=== PATIENT | male | born 1930 | race Caucasian/White ===

== ENCOUNTER 2017-03-09 05:53 | Inpatient (IN) | payer OTHER ==
[~2017-03-09] VITALS: Ht 180.3 cm; Wt 56.7 kg
[2017-03-09] VITALS (8 sets, daily range): BP systolic 113–139; BP diastolic 73–82; PULSE 71–107; TEMP 36.4–36.8; O2SAT 94–100; Ht 180.3 cm; Wt 56.7 kg
[~2017-03-09 05:53] MED LIST: ACETAMINOPHEN 325 MG TAB PO PRN; ALUMINUM/MAGNESIUM/SIMETH (MAALOX MAX) 30 ML UDC PO PRN; MAGNESIUM HYDROXIDE SUSP 30 ML UDC PO PRN; NITROGLYCERIN 0.4 MG SL PER TAB CHARGE SL PRN; ONDANSETRON INJ 2 MG/ML 2 ML VIAL IV PRN
--- NOTE | 2017-03-09 05:57 | History and Physical ---
History & Physical Date & Time of Service: Mar 09, 2017 at 05:50 Chief Complaint: Atrial Fibrillation With Rvr, Diarrhea,Dehydration Primary Care Physician: Neel Farmer M.D. History of Present Illness Source: patient, hospital records Mr Molina is an 86 yo male with atrial fibrillation,CAD s/p stent placement in [place] 6 years ago, prostate Ca, and COPD who presents via ambulance from [facility]. He apparently had severe diarrhea the last few days as well as a sore throat, and was dehydrated, then noticed his breathing start to be very rapid. He denies any chest pain occurring at that time. He reportedly told [place] he did not take his medications the last 3 days. He presented to [place] and was found to be in a fib with RVR, and was given a dose of digoxin and his heart slowed. He was given 3L of NSS and his HR went from 140 to 120. He reports drinking about 2 beers daily, sometimes more, and so was given a banana bag, thiamine, and folic acid. Imaging showed increased lucency on T9, and there was concern for a spread of his prostate Ca. He also had a BNP of 8600. He was also found to have oral candidiasis. Past Medical/Surgical History Medical Problems: (1) CAD (coronary artery disease) Status: Chronic (2) CHF (congestive heart failure) Status: Chronic (3) HTN (hypertension) Status: Chronic Surgical Problems: (1) History of appendectomy Status: Resolved (2) History of heart catheterization Status: Resolved Family History FH: cancer Social History Drinks about 2+ beers per night. Smokes 1/2 pack per day since age 30. Lives alone in an apartment. Smoking Status: Current Every Day Smoker (1/2 pack per shell) Drug Use: none Marital Status: other Housing status: lives alone Occupational Status: retired Immunizations History of Influenza Vaccine: Unknown History of Tetanus Vaccine?: Unknown History of Pneumococcal: Unknown History of Hepatitis B Vaccine: Unknown Multi-Drug Resistant Organisms History of MDRO: No Allergies Coded Allergies: No Known Allergies (Unverified , 03/09/17) Home Medications Scheduled Aspirin (Aspirin 81), 81 MG PO DAILY Carvedilol (Coreg), 6.25 MG PO BID Digoxin (Digoxin), 0.125 MG PO DAILY Folic Acid (Folvite), 1 MG PO DAILY Levothyroxine Sodium (Levothyroxine Sodium), 75 MCG PO DAILY Meloxicam (Mobic), 15 MG PO DAILY [place]-3 Fatty Acids (Fish Oil Concentrate), 1,000 MG PO BID Pantoprazole (Protonix), 20 MG PO DAILY Paroxetine (Paxil), 20 MG PO DAILY Tamsulosin Hcl (Flomax), 0.4 MG PO DAILY Thiamine Hcl (Vitamin B-1), 100 MG PO BID Trazodone Hcl (Trazodone), 25 MG PO HS Review of Systems See HPI for pertinent positives & negatives. A total of 10 systems reviewed and were otherwise negative. Physical Exam Vital Signs Date Time Temp Pulse Resp B/P (MAP) Pulse Ox O2 Delivery O2 Flow Rate FiO2 03/09/17 04:45 100 Nasal Cannula 4.0 03/09/17 04:45 36.4 74 16 139/76 (97) 100 Nasal Cannula 4.0 General Appearance: WD/WN, no apparent distress, + thin Head: normocephalic, atraumatic Eyes: normal inspection, PERRL ENT: hearing grossly normal Neck: supple, no JVD Respiratory/Chest: lungs clear, normal breath sounds, no respiratory distress Cardiovascular: regular rate, rhythm, no murmur, normal peripheral pulses Abdomen/GI: normal bowel sounds, non tender, soft Back: no CVA tenderness, no muscle spasm Extremities/Musculoskelatal: no calf tenderness, no pedal edema Neurologic/Psych: alert, normal mood/affect, oriented x 3 Skin: no rash Diagnostics Laboratory Results Last 24 Hours Test 03/09/17 07:20 03/09/17 16:43 White Blood Count 4.76 K/uL Red Blood Count 4.36 M/uL Hemoglobin 13.6 g/dL Hematocrit 40.3 % Mean Corpuscular Volume 92.4 fL Mean Corpuscular Hemoglobin 31.2 pg Mean Corpuscular Hemoglobin Concent 33.7 g/dl Platelet Count 136 K/uL Mean Platelet Volume 9.6 fL Neutrophils (%) (Auto) 68.1 % Lymphocytes (%) (Auto) 10.3 % Monocytes (%) (Auto) 20.8 % Eosinophils (%) (Auto) 0.2 % Basophils (%) (Auto) 0.2 % Neutrophils # (Auto) 3.24 K/uL Lymphocytes # (Auto) 0.49 K/uL Monocytes # (Auto) 0.99 K/uL Eosinophils # (Auto) 0.01 K/uL Basophils # (Auto) 0.01 K/uL RDW Standard Deviation 46.4 fL RDW Coefficient of Variation 13.7 % Immature Granulocyte % (Auto) 0.4 % Immature Granulocyte # (Auto) 0.02 K/uL Prothrombin Time 13.2 SECONDS Prothromb Time International Ratio 1.2 Activated Partial Thromboplast Time 39.7 SECONDS 54.6 SECONDS Partial Thromboplastin Ratio 1.5 2.1 Sodium Level 135 mmol/L Potassium Level 4.3 mmol/L Chloride Level 101 mmol/L Carbon Dioxide Level 25 mmol/L Anion Gap 9.0 mmol/L Blood Urea Nitrogen 18 mg/dl Creatinine 0.88 mg/dl Est Creatinine Clear Calc Drug Dose 48.1 ml/min Estimated GFR () 91.4 Estimated GFR (Non- 78.9 BUN/Creatinine Ratio 20.2 Random Glucose 75 mg/dl Osmolality 284 mOsm/kg Calcium Level 8.3 mg/dl Magnesium Level 1.9 mg/dl Troponin I 0.036 ng/ml Thyroid Stimulating Hormone (TSH) 0.871 uIu/ml Digoxin Level 0.5 ng/ml Ethyl Alcohol mg/dL < 3.0 mg/dl CXR normal EKG Atrial fibrillation, 76bpm Septal infarct , age undetermined Abnormal ECG No previous ECGs available Confirmed by ROSENDO PETERSON ([id number]) on 03/09/2017 9:06:31 AM No prior EKG available Impression Assessment and Plan 86 yo M, with atrial fibrillation with RVR, likely from inability to take medications when had a gastroenteritis. Atrial fibrillation - Will continue home medications (awaiting reconciliation) - Lopressor 5mg IV for HR > 110 - Unclear if he is on anticoaguation - Rule out PE - Repeat echo in AM - May need Cardiology consult - Telemetry monitoring CAD, s/p stent 6 years ago - Will obtain outpt records - Continue current home regime Diarrheal illness - Will check a C Diff level Hx of prostate Ca, with potential mets to spine - Awaiting outside imaging - Check PSA level Tobacco use - Nicotine patch Deconditioning - PT/OT VTE: IV heparin Dispo: Admit to Tele. After completing H&P it was made known to us that the pts PCP is Lizbeth. Dr. Hernandez was contacted for transfer of care to the [facility] Service. Full code. Attending addendum: I have physically seen this patient, have supervised the medical residents activities, and agree with the H&P unless as otherwise noted. Assessment and Plan: Atrial fibrillation with RVR/CAD/history coronary artery stent 6 years ago-- Likely secondary to inability to take routine medications. The patient will be admitted to telemetry for serial cardiac enzymes, cardiac rhythm monitoring and a 2-D echocardiogram with Dopplers. Lopressor 5 mg IV every 4 hours when necessary heart rate greater than 110 Usually on digoxin 0.125 mg by mouth daily, but was given 0.25 mg by mouth as a single dose at [facility]. Reinstitute home regimen of chlorics 6.25 mg by mouth twice a day, aspirin 81 mg by mouth daily, digoxin 0.125 mg by mouth daily. Of note, patient, upon chart review sees Dr. Wood, who is [facility] PCP, the patient will be therefore transferred to Dr. Hernandez's service with rashawn for continuity of care. Level of Care Telemetry Advanced Directives Existing Advance Directive: No Existing Living Will: No Existing Power of Hand Washer: No Resuscitation Status FULL RESUSCITATION VTE Prophylaxis VTE Risk Assessment Done? Y/N: Yes Risk Level: Moderate Given or contraindicated: SCD's Resident Tracking Resident Involvement: Resident Care Provided Care Provided: Adult Hospital Medicine
[2017-03-09] MEDS ORDERED: PATIENT'S ALLERGY INFO NEEDS ENTERED SCH (06:00)
[2017-03-09] MEDS ORDERED: METOPROLOL TARTRATE 1 MG/ML VIAL IV PRN (06:00)
[2017-03-09] MEDS ORDERED: PNEUMOCOCCAL POLYSACCHARIDES 25 MCG/0.5 ML VIAL/SYR IM. ONE (06:45)
[2017-03-09] MEDS ORDERED: PNEUMOCOCCAL ADMINISTRATION CHARGE ONE (06:45)
[2017-03-09] MEDS ORDERED: LEVO75TA5 PO (06:51)
[2017-03-09] MEDS ORDERED: THIA100T11 PO (06:51)
[2017-03-09] MEDS ORDERED: FOLI1TAB8 PO (06:52)
[2017-03-09] MEDS ORDERED: PRT/20 PO (06:52)
[2017-03-09] MEDS ORDERED: PARO1TAB27 PO (06:52)
[2017-03-09] MEDS ORDERED: ASPI-435 PO (06:52)
[2017-03-09] MEDS ORDERED: OMEG435C PO (06:54)
[2017-03-09] MEDS ORDERED: TRAZ50TA35 PO (06:54)
[2017-03-09] MEDS ORDERED: TAMS0.4C38 PO (06:54)
[2017-03-09] MEDS ORDERED: LNX125 PO (06:55)
[2017-03-09] MEDS ORDERED: CARV6.25 PO (06:55)
[2017-03-09] MEDS ORDERED: MELOPOW (06:56)
[2017-03-09] MEDS ORDERED: MELO15TA4 PO (06:56)
[2017-03-09] MEDS ORDERED: CARVEDILOL 6.25 MG TAB PO ONE (07:29)
[2017-03-09] MEDS ORDERED: OXYCODONE/ACETAMINOPHEN 5-325 TAB PO PRN (07:45)
[2017-03-09] MEDS ORDERED: LORAZEPAM 2 MG/ML 1 ML VIAL IV PRN (07:45)
[2017-03-09] MEDS ORDERED: ACETAMINOPHEN 325 MG TAB PO PRN (07:45)
[2017-03-09] MEDS ORDERED: LEVALBUTEROL/IPRATROPIUM NEB INH PRN (07:45)
[2017-03-09] MEDS ORDERED: PROCHLORPERAZINE INJ 5 MG in SYRINGE 4 ML IV PRN (07:45)
[2017-03-09 07:46] LABS: BASO % 0.2 %; BASO ABS # 0.01 K/uL (0-0.2); COMPLETE YES; EOS % 0.2 %; HEMATOCRIT 40.3 % (42-52); IG% 0.4 %; LYMPH % 10.3 %; LYMPH ABS # 0.49 K/uL (1.2-3.4); MEAN CELL VOLUME 92.4 fL (80-100); MEAN CORPUSCULAR HEMOGLOBIN 31.2 pg (25-34); MEAN CORPUSCULAR HGB CONC 33.7 g/dl (32-36); MEAN PLATELET VOLUME 9.6 fL (7.4-10.4); MONO % 20.8 %; NEUT % 68.1 %; PLATELET COUNT 136 K/uL (130-400); RED BLOOD COUNT 4.36 M/uL (4.7-6.1); WHITE BLOOD COUNT 4.76 K/uL (4.8-10.8)
[2017-03-09 07:53] LABS: PARTIAL THROMBOPLASTIN RATIO 1.5
[2017-03-09] MEDS ORDERED: LEVALBUTEROL 1.25MG/0.5ML NEB INH PRN (08:00)
[2017-03-09] MEDS ORDERED: IPRATROPIUM BROMIDE NEB SOLN 0.02% 2.5 ML VIAL INH PRN (08:00)
[2017-03-09 08:03] LABS: BUN/CREATININE RATIO 20.2 (10-20); CALCIUM 8.3 mg/dl (8.5-10.1); CREATININE 0.88 mg/dl (0.60-1.40); MAGNESIUM 1.9 mg/dl (1.8-2.4); POTASSIUM 4.3 mmol/L (3.5-5.1)
--- NOTE | 2017-03-09 08:09 | DIAGNOSTIC IMAGING REPORT ---
CHEST ONE VIEW PORTABLE HISTORY: wheezing COMPARISON: None. FINDINGS: No pneumothorax. No pleural effusions. The lungs are hyperexpanded with apical predominant emphysematous changes. No focal lung consolidations to suggest pneumonia. The heart is normal in size. No evidence for pulmonary edema. IMPRESSION: Emphysema. No acute process within the chest. Electronically signed by: Stu San M.D. 03/09/2017 8:08 AM Dictated Date/Time: 03/09/2017 8:07 AM
[2017-03-09 08:14] LABS: THYROID STIMULATING HORMONE 0.871 uIu/ml (0.300-4.500)
[2017-03-09] MEDS ORDERED: OPTIRAY 320 IV PRN (08:15)
[2017-03-09] MEDS ORDERED: MAGNESIUM SULFATE 1GM / D5W 1 GM in PREMIXED IN D5W 100 ML IV ONE (08:30)
--- NOTE | 2017-03-09 08:44 | HISTORY & PHYSICAL EXAMINATION ---
DATE OF ADMISSION: 03/09/2017 CHIEF COMPLAINT: Shortness of breath. HISTORY OF PRESENT ILLNESS: History obtained from patient and records. Medical history significant for AFib not on anticoagulation, COPD, ongoing tobacco abuse, CAD post-stenting, prostate cancer status post radiation, mood disorder, hypothyroidism, daily alcohol intake (chronic anemia with baseline hemoglobin of 13). Last few days the patient not feeling well. Patient noted increasing shortness of breath symptoms. Usual smoker's cough symptoms. No chest pain, no fever, no chills. Loose stools, poor appetite. No recent antibiotic. Patient seen at [facility] Emergency Room. Patient was noted to be tachypneic, tachycardic (rapid AFib.) Patient received IV hydration, DuoNebs, Levaquin for possible COPD exacerbation. Patient received Lovenox 60 mg SQ for thromboprophylaxis. Transferred to [facility] for Cardiology evaluation. Patient accepted for transfer by [facility] Hospitalist group. Patient transferred to [facility] after PCP info extracted. [facility] MEDICAL HISTORY: As above. Patient's record searcher is Dr. Sanders. Has not seen him in about 5 years. Patient not aware of any need for regular cardiac follow-up. Patient thinks he may have been on anticoagulation in the past. Not sure why it was stopped. Does not recall any episodes of bleeding in the past. A 2D echo from October 2015 showed EF of 55%. No pericardial effusion, mild aortic valve stenosis, mitral valve sclerosis, LVH. Patient sees [facility]. SURGERIES: Appendectomy. HOME MEDICATIONS: Include thiamine, levothyroxine, folic acid, aspirin, Meloxicam, carvedilol, digoxin, Protonix, paroxetine, tamsulosin and trazodone. ALLERGIES: No known drug allergies. FAMILY HISTORY: Hypertension. PERSONAL AND SOCIAL HISTORY: pack daily. Daily alcohol intake. 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 REVIEW OF SYSTEMS: As per HPI. All 10 systems reviewed, all other ROS negative. PHYSICAL EXAMINATION: VITAL SIGNS: Blood pressure was noted to be 139/76, pulse is 74, RR 16, temp 36 , O2 sats 100 on 4 liters. GENERAL: Noted to be comfortable, hyposthenic. no respiratory distress. Hard of hearing. Wearing a blanket over his head SKIN: Pallor. Warm HEENT: Alopecia. Pale palpebral conjuctivae. Dry mucosa. No ptosis. NECK: Supple. No tenderness. CHEST: Decreased breath sounds. Occasional wheeze. HEART: Irregular. Systolic murmur. Palpable LE pulses. ABDOMEN: Soft. NT EXTREMITIES: No edema, no tenderness, no gross deformities. NEUROLOGIC: Coherent. No gross focality except for mild hearing impairment. LABORATORY DATA: Labs from [facility] [place] dated 03/08/2017: Hemoglobin 14, hematocrit 46, white cell count 9, platelets 161. Sodium 130, potassium 4.5, chloride 94, CO2 25, BUN 18, creatinine 1, glucose of 80. Mag was 1.7, anion gap was 15. Chest x-ray from [facility], emphysema, pulmonary hypertension, diffuse T9 vertebral body blastic metastasis, new from October 2015. EKG as per my interpretation, rate 150, AFib. ASSESSMENT: 1. Rapid atrial fibrillation. Patient's heart rate currently controlled after initial intervention at [facility] ER possible precipitants : Diarrheal illness ? Medication compliance (patient cannot even name his home meds) rule out pulmonary embolism with shortness of breath symptoms 2. Hypertension, stable. 3. Coronary artery disease, status post stenting. 4. Headache ro bleed 5. Ongoing tobacco abuse. 6. Malnutrition (low BMI). 7. Prostate cancer status post radiation concern for bone mets on imaging done at [facility] ER. 8. Daily alcohol intake. 9. ? Functional disability 10. chronic anemia (hemoglobin at [facility] ER better than baseline) PLAN: PCU facilitate Coreg, digoxin (if level normal) Stool C. diff. CT chest, PE study. RE sob CT head headache TTE RE sob, rapid AF May need inpatient Cardiology eval for AF Obtain recent outpatient cardiology records. (Patient has not seen his [facility] record searcher in more than 5 years as per patient account.) ffup PSA level May need outpatient Oncology eval pending results. Nutrition consult. PT OT eval DT precautions Nicotine patch DVT prophylaxis, IV heparin if no bleed on CT head for thromboembolic prophylaxis for AF (Assess patient for candidacy for outpatient anticoagulation given patient's frailty.) Full code. Attempt to contact patient's daughter regarding patient's functional status. Miss Erika Khan at [phone]. No billing from [facility] for this initial H&P encounter. Initial H&P and admission orders were performed by [facility] Hospitalist group. MARCI
[2017-03-09] MEDS: NICOTINE 14 MG/24 HR TDSY TD SCH (09:00)
--- NOTE | 2017-03-09 09:18 | DIAGNOSTIC IMAGING REPORT ---
HEAD CT NONCONTRAST CT DOSE: HISTORY: Headache. TECHNIQUE: Multiaxial CT images of the head were performed without the use of intravenous contrast. Automated exposure control was utilized for this study. A dose lowering technique was utilized adhering to the principles of ALARA. Comparison: None. Findings: Partial desiccation of the right frontal sinus, ethmoid air cells. Near-complete opacification of the nasal cavity suggesting underlying polyps. Trace fluid levels within the sphenoid sinus and right maxillary sinus. Moderate mucosal thickening within the maxillary sinuses. The mastoid air cells are clear. Motion artifact. The calvarium and skull base are intact. There is no mass, hematoma, midline shift, acute infarct. White matter hypodensity is nonspecific but suggestive of microvascular ischemic change. The ventricles and sulci demonstrate mild age-related involutional changes. Impression: No acute intracranial abnormality. Atrophy and microvascular ischemic changes. Acute on chronic paranasal sinusitis as described above. Electronically signed by: Stu San M.D. 03/09/2017 9:17 AM Dictated Date/Time: 03/09/2017 9:14 AM
--- NOTE | 2017-03-09 09:28 | DIAGNOSTIC IMAGING REPORT ---
CHEST CTA for PULMONARY ARTERIES CT DOSE: 1308.25 mGy.cm HISTORY: Short of breath. TECHNIQUE: Multiaxial CT images of the chest were performed following the intravenous administration of contrast to evaluate the pulmonary arteries. Maximal intensity projection images were also obtained. A dose lowering technique was utilized adhering to the principles of ALARA. COMPARISON STUDY: Chest 03/09/2017. FINDINGS: Normal caliber thoracic aorta. No evidence for dissection within the ascending aorta or aortic arch. Inadequate contrast opacification within the descending thoracic aorta. Retrograde opacification of the hepatic veins suggesting mild right-sided heart dysfunction. The heart is mildly enlarged. Trace bilateral pleural effusions. No pericardial effusion. The visualized spleen is unremarkable. Thickening of the adrenal glands is likely age-related. No significant mediastinal or hilar lymphadenopathy. Diffuse sclerosis within the T9 vertebral body. A few additional smaller sclerotic lesions seen within the mid to lower thoracic spine and at L1. There is also a sclerotic focus within the right seventh rib. 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 No pneumothorax. The lungs are hyperexpanded with moderate emphysema. Biapical partially calcified densities favor scarring. [Linear densities favor subsegmental atelectasis. Otherwise, no focal lung consolidations to suggest pneumonia. Near complete opacification of the bilateral lower lobe segmental and subsegmental bronchi. Bilateral lower lobe subsegmental pulmonary arteries are nondiagnostic due to motion artifact. Otherwise, the remaining pulmonary arteries show no filling defects to suggest pulmonary embolus. IMPRESSION: 1. No evidence for pulmonary embolus. 2. Near complete opacification of the bilateral lower lobe segmental and subsegmental bronchi with secretions. 3. Moderate emphysema. 4. Multiple sclerotic lesions seen within the thoracic spine and right seventh rib. 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 5. Trace bilateral pleural effusions. Electronically signed by: Stu San M.D. 03/09/2017 9:26 AM Dictated Date/Time: 03/09/2017 9:17 AM
[2017-03-09] MEDS: PANTOprazole SOD 40 MG TAB PO SCH (09:44)
[2017-03-09] MEDS: ASPIRIN 81 MG ECTAB PO SCH (09:44)
[2017-03-09] MEDS: MULTIVITAMIN TAB PO SCH (09:44)
[2017-03-09] MEDS: LEVOTHYROXINE 75 MCG TAB PO SCH (09:44)
[2017-03-09] MEDS: TAMSULOSIN HCL 0.4 MG CAP PO SCH (09:44)
[2017-03-09] MEDS: PAROXETINE 20 MG TAB PO SCH (09:44)
[2017-03-09] MEDS: THIAMINE HCL 100 MG TAB PO SCH (09:44)
[2017-03-09] MEDS: HEPARIN IV LOW DOSE NO BOLUS SCH ×10 (09:50→11:09)
[2017-03-09 10:34] LABS: INR 1.2 (0.9-1.1); PROTHROMBIN TIME (PATIENT) 13.2 SECONDS (9.0-12.0)
[2017-03-09] MEDS: HEPARIN 25,000 UNIT/500ML D5W 500 ML IV PRN (10:38)
[2017-03-09] MEDS ORDERED: NURSING VERBAL MED ORDER ONE (11:00)
--- NOTE | 2017-03-09 12:41 | ECHOCARDIOGRAM REPORT ---
*NOTICE TO RECEIVING REPUBLICAN AGENCY This information is strictly Confidential and protected under [place] law. [place] law prohibits you from making any further disclosure of this information unless further disclosure is expressly permitted by the written consent of the person to whom it pertains or is authorized by law. A general authorization for the release of medical or other information is not sufficient for this purpose. Hospital accepts no responsibility if the information is made available to any other person, INCLUDING THE PATIENT. Interpretation Summary * Name: LOIDA SALOMON Study Date: 03/09/2017 11:17 AM BP: 139/76 mmHg * Patient Location: C.2T\S\S233\S\1 HR: 74 * : 1930 (M/d/yyyy) Gender: Male Height: 70 in * Age: 86 yrs Ethnicity: CA Weight: 119 lb * Ordering Physician: Pavan Hernandez * Referring Physician: No Doctor, Assigned * Performed By: Rae Hill RDCS * * Reason For Study: Atrial Fibrillation * BSA: 1.7 m2 * -- Conclusions -- * The left ventricle is normal in size. * Ejection Fraction = 55-60%. * The left ventricular wall motion is normal. * The right ventricular systolic function is normal. * The left atrium is borderline dilated. * Right atrial size is normal. * Mild valvular aortic stenosis. * Mild aortic regurgitation. * There is moderate to severe mitral regurgitation. Procedure Details * A complete two-dimensional transthoracic echocardiogram was performed (2D, M-mode, Doppler and color flow Doppler). Left Ventricle * The left ventricle is normal in size. * There is normal left ventricular wall thickness. * Ejection Fraction = 55-60%. * The left ventricular wall motion is normal. Right Ventricle * The right ventricle is normal size. * The right ventricular systolic function is normal. Atria * The left atrium is borderline dilated. * Right atrial size is normal. * There is no evidence of atrial septal defect, but resolution does not allow assessment for a patent foramen ovale. Mitral Valve * The mitral valve leaflets appear thickened, but open well. * There is moderate to severe mitral regurgitation. Tricuspid Valve * The tricuspid valve is not well visualized, but is grossly normal. * There is trace tricuspid regurgitation. Aortic Valve * Mild valvular aortic stenosis. * Mild aortic regurgitation. Pulmonic Valve * The pulmonic valve is not well visualized. Pericardium/Pleural * There is no pericardial effusion. MMode 2D Measurements and Calculations IVSd 0.94 cm IVSs 1.4 cm LVIDd 4.2 cm LVIDs 3.0 cm LVPWd 1.1 cm LVPWs 2.0 cm IVS/LVPW 0.86 FS 28.9 % EDV(Teich) 78.5 ml ESV(Teich) 34.6 ml EF(Teich) 55.9 % EDV(cubed) 74.0 ml ESV(cubed) 26.6 ml EF(cubed) 64.0 % % IVS thick 43.8 % % LVPW thick 84.1 % LV mass(C)d 140.9 grams LV mass(C)dI 84.2 grams/m\S\2 LV mass(C)s 192.4 grams LV mass(C)sI 114.9 grams/m\S\2 SV(Teich) 43.9 ml SI(Teich) 26.2 ml/m\S\2 SV(cubed) 47.4 ml SI(cubed) 28.3 ml/m\S\2 Ao root diam 4.6 cm Ao root area 16.5 cm\S\2 ACS 1.3 cm LA dimension 3.9 cm LA/Ao 0.85 LVOT diam 2.1 cm LVOT area 3.6 cm\S\2 LVAd ap4 23.9 cm\S\2 LVLd ap4 7.5 cm EDV(MOD-sp4) 66.9 ml EDV(sp4-el) 65.1 ml LVAs ap4 15.4 cm\S\2 LVLs ap4 7.4 cm ESV(MOD-sp4) 29.7 ml ESV(sp4-el) 27.1 ml EF(MOD-sp4) 55.6 % EF(sp4-el) 58.3 % LVAd ap2 28.1 cm\S\2 LVLd ap2 7.9 cm EDV(MOD-sp2) 87.4 ml EDV(sp2-el) 84.7 ml LVAs ap2 17.9 cm\S\2 LVLs ap2 6.9 cm ESV(MOD-sp2) 42.2 ml ESV(sp2-el) 39.4 ml EF(MOD-sp2) 51.7 % EF(sp2-el) 53.5 % LVLd %diff 5.1 % EDV(MOD-bp) 77.9 ml LVLs %diff -6.95 % ESV(MOD-bp) 35.1 ml EF(MOD-bp) 55.0 % SV(MOD-sp4) 37.2 ml SI(MOD-sp4) 22.2 ml/m\S\2 SV(MOD-sp2) 45.2 ml SI(MOD-sp2) 27.0 ml/m\S\2 SV(MOD-bp) 42.8 ml SI(MOD-bp) 25.6 ml/m\S\2 SV(sp4-el) 38.0 ml SI(sp4-el) 22.7 ml/m\S\2 SV(sp2-el) 45.3 ml SI(sp2-el) 27.1 ml/m\S\2 Doppler Measurements and Calculations Ao V2 max 150.4 cm/sec Ao max PG 9.1 mmHg Ao max PG (full) 5.7 mmHg AMY(V,A) 2.2 cm\S\2 AMY(V,D) 2.2 cm\S\2 AI max desmond 355.4 cm/sec AI max PG 50.6 mmHg AI dec slope 196.6 cm/sec\S\2 AI P1/2t 529.4 msec LV V1 max PG 3.4 mmHg LV V1 max 91.5 cm/sec MR max desmond 533.8 cm/sec MR max PG 114.0 mmHg MR mean desmond 422.7 cm/sec MR mean PG 76.7 mmHg MR VTI 193.8 cm PA V2 max 78.8 cm/sec PA max PG 2.5 mmHg TR max desmond 217.6 cm/sec
--- NOTE | 2017-03-09 16:04 | Progress Note ---
Medicine Progress Note Date & Time of Visit: Mar 09, 2017 at 12:38. Subjective Pt was seen and examined Lying in bed with no distress Pt said that he feels much better today He said that he doesn't have the palpitation anymore He said that his breathing feels better Denies any chest pain, palpitation, dizziness and SOB Objective Last 8 Hrs Date Time Temp Pulse Resp B/P (MAP) Pulse Ox O2 Delivery O2 Flow Rate FiO2 03/09/17 12:00 Nasal Cannula 3.0 03/09/17 11:31 36.6 80 19 134/75 (94) 100 Nasal Cannula 3.0 03/09/17 08:21 36.8 87 19 130/82 (98) 98 Nasal Cannula 3.0 03/09/17 08:00 Nasal Cannula 3.0 Physical Exam: General- No acute distress Head- atraumatic Eyes- PERRL, EOMI ENT- oropharynx clear Neck- supple, no JVD Lungs- clear to auscultation Heart- Irregular rhythm Abdomen- normal bowel sounds, soft Extremities- no calf tenderness Neuro- alert, oriented x 3; PERRL, EOMI; no facial palsy Skin- warm & dry Laboratory Results: Last 24 Hours Test 03/09/17 07:20 White Blood Count 4.76 K/uL Red Blood Count 4.36 M/uL Hemoglobin 13.6 g/dL Hematocrit 40.3 % Mean Corpuscular Volume 92.4 fL Mean Corpuscular Hemoglobin 31.2 pg Mean Corpuscular Hemoglobin Concent 33.7 g/dl Platelet Count 136 K/uL Mean Platelet Volume 9.6 fL Neutrophils (%) (Auto) 68.1 % Lymphocytes (%) (Auto) 10.3 % Monocytes (%) (Auto) 20.8 % Eosinophils (%) (Auto) 0.2 % Basophils (%) (Auto) 0.2 % Neutrophils # (Auto) 3.24 K/uL Lymphocytes # (Auto) 0.49 K/uL Monocytes # (Auto) 0.99 K/uL Eosinophils # (Auto) 0.01 K/uL Basophils # (Auto) 0.01 K/uL RDW Standard Deviation 46.4 fL RDW Coefficient of Variation 13.7 % Immature Granulocyte % (Auto) 0.4 % Immature Granulocyte # (Auto) 0.02 K/uL Prothrombin Time 13.2 SECONDS Prothromb Time International Ratio 1.2 Activated Partial Thromboplast Time 39.7 SECONDS Partial Thromboplastin Ratio 1.5 Sodium Level 135 mmol/L Potassium Level 4.3 mmol/L Chloride Level 101 mmol/L Carbon Dioxide Level 25 mmol/L Anion Gap 9.0 mmol/L Blood Urea Nitrogen 18 mg/dl Creatinine 0.88 mg/dl Est Creatinine Clear Calc Drug Dose 48.1 ml/min Estimated GFR () 91.4 Estimated GFR (Non- 78.9 BUN/Creatinine Ratio 20.2 Random Glucose 75 mg/dl Osmolality 284 mOsm/kg Calcium Level 8.3 mg/dl Magnesium Level 1.9 mg/dl Troponin I 0.036 ng/ml Thyroid Stimulating Hormone (TSH) 0.871 uIu/ml Digoxin Level 0.5 ng/ml Ethyl Alcohol mg/dL < 3.0 mg/dl Assessment & Plan Rapid atrial fibrillation. Rate was uncontrolled on admission Starting on digoxin Rate has been controlled on digoxin and coreg On IV heparin drip Has not been follow with his cardiology in the past few years Was on anticoagulant in the past, but was discontinued Daughter not too sure why, but think possible due to fall Not a good candidate for anticoagulant due to fall Fell few weeks ago and few months ago he had a bad fall His gait is unsteady Cardiology consulted Recent Echo showed * The left ventricle is normal in size. * Ejection Fraction = 55-60%. * The left ventricular wall motion is normal. * The right ventricular systolic function is normal. * The left atrium is borderline dilated. * Right atrial size is normal. * Mild valvular aortic stenosis. * Mild aortic regurgitation. Hypertension BP stable Continue coreg Coronary artery disease status post stenting. Denies any chest pain Troponin negative EKG showed Afib Tobacco abuse Counseling on smoking cessation On nicotine patch . Prostate cancer status post radiation As per daughter pt was treated Denies any hematuria CT showed Multiple sclerotic lesions seen within the thoracic spine and right seventh rib. This is consistent with osteoblastic metastatic disease. Result discussed with family Oncology consult as per family Ambulatory dysfunction Fall precaution PT/OT Chronic anemia Hbg stable DVT px on heparin drip Code status Full code Current Inpatient Medications: Current Inpatient Medications Medications (Trade) Dose Ordered Sig/Magdalena Route Start Time Stop Time Status Last Admin Dose Admin Acetaminophen (Tylenol Tab) 650 mg Q4H PRN PO 03/09/17 05:30 04/08/17 05:29 Ondansetron HCl (Zofran Inj) 4 mg Q6H PRN IV 03/09/17 05:30 04/08/17 05:29 Nitroglycerin (Nitrostat Tab) 0.4 mg UD PRN SL 03/09/17 05:30 04/08/17 05:29 Aspirin (Ecotrin Tab) 81 mg DAILY PO 03/09/17 09:00 04/08/17 08:59 03/09/17 09:44 81 MG Carvedilol (Coreg Tab) 6.25 mg BID PO 03/09/17 21:00 04/08/17 20:59 Folic Acid (Folvite Tab) 1 mg DAILY PO 03/09/17 09:00 04/08/17 08:59 03/09/17 09:44 1 MG Levothyroxine Sodium (Synthroid Tab) 75 mcg DAILYBB PO 03/09/17 09:00 04/08/17 08:59 03/09/17 09:44 75 MCG Paroxetine HCl (pAXil TAB) 20 mg DAILY PO 03/09/17 09:00 04/08/17 08:59 03/09/17 09:44 20 MG Tamsulosin HCl (Flomax Cap) 0.4 mg DAILY PO 03/09/17 09:00 04/08/17 08:59 03/09/17 09:44 0.4 MG Thiamine HCl (Vitamin B-1 Tab) 100 mg DAILY PO 03/09/17 09:00 04/08/17 08:59 03/09/17 09:44 100 MG Trazodone HCl (Desyrel Tab) 25 mg HS PO 03/09/17 21:00 04/08/17 20:59 Pantoprazole Sodium (Protonix Tab) 40 mg DAILY PO 03/09/17 09:00 04/08/17 08:59 03/09/17 09:44 40 MG Multivitamins (Multivitamin Tab) 1 tab QAM PO 03/09/17 09:00 04/08/17 08:59 03/09/17 09:44 1 TAB Acetaminophen (Tylenol Tab) 650 mg Q4H PRN PO 03/09/17 07:45 04/08/17 07:44 Oxycodone/ Acetaminophen (Percocet 5-325mg Tab) 1 tab Q6H PRN PO 03/09/17 07:45 03/23/17 07:44 Prochlorperazine Edisylate 5 mg/ Syringe 5 ml @ 5 mls/min Q6H PRN IV 03/09/17 07:45 04/08/17 07:44 Lorazepam (Ativan Inj) 0.25 mg Q4H PRN IV 03/09/17 07:45 04/08/17 07:44 Ipratropium [place] (Atrovent 0.02% 0.5MG/2.5ML Neb) 0.5 mg Q4H PRN INH 03/09/17 08:00 04/08/17 07:59 Levalbuterol (Xopenex 1.25MG/ 0.5ML Neb) 1.25 mg Q4H PRN INH 03/09/17 08:00 04/08/17 07:59 Nicotine (Nicoderm Cq 14MG Patch) 1 patch QAM TD 03/09/17 09:00 04/08/17 08:59 Miscellaneous (Remove Nicoderm Patch) 1 ea HS N/A 03/09/17 21:00 04/08/17 20:59 Ioversol (Optiray 320) 100 ml UD PRN IV 03/09/17 08:15 03/13/17 08:14 Digoxin (Lanoxin Tab) 0.125 mg DAILY@1600 PO 03/09/17 16:00 04/08/17 15:59 Heparin Sodium/ Dextrose 500 ml @ 13 mls/hr Q24H PRN IV 03/09/17 10:00 04/08/17 09:59 03/09/17 10:38 13 MLS/HR Enteral Nutritional Formula (Boost Plus Vanilla) 1 can BID PO 03/09/17 21:00 04/08/17 20:59
[2017-03-09] MEDS: DIGOXIN 0.125 MG TAB PO SCH (16:21)
[2017-03-09 17:10] LABS: PARTIAL THROMBOPLASTIN RATIO 2.1
[2017-03-09] MEDS: TRAZODONE HCL 50 MG TAB PO SCH (19:35)
[2017-03-09] MEDS: CARVEDILOL 6.25 MG TAB PO SCH (19:35)
[2017-03-09] MEDS: BOOST PLUS VANILLA PO SCH ×2 (21:00)
[2017-03-10] VITALS (9 sets, daily range): BP systolic 100–143; BP diastolic 63–78; PULSE 74–97; TEMP 36.4–37; O2SAT 91–96
[2017-03-10 04:26] LABS: BASO % 0.3 %; BASO ABS # 0.02 K/uL (0-0.2); COMPLETE YES; EOS % 0.8 %; HEMATOCRIT 38.5 % (42-52); IG% 0.3 %; LYMPH % 11.6 %; LYMPH ABS # 0.75 K/uL (1.2-3.4); MEAN CELL VOLUME 92.5 fL (80-100); MEAN CORPUSCULAR HGB CONC 33.5 g/dl (32-36); MEAN PLATELET VOLUME 9.7 fL (7.4-10.4); MONO % 14.2 %; NEUT % 72.8 %; PLATELET COUNT 119 K/uL (130-400); RED BLOOD COUNT 4.16 M/uL (4.7-6.1); WHITE BLOOD COUNT 6.46 K/uL (4.8-10.8)
[2017-03-10 04:43] LABS: PARTIAL THROMBOPLASTIN RATIO 2.4
[2017-03-10 04:45] LABS: BUN/CREATININE RATIO 20.7 (10-20); CALCIUM 8.6 mg/dl (8.5-10.1); CREATININE 0.78 mg/dl (0.60-1.40); POTASSIUM 4.4 mmol/L (3.5-5.1)
[2017-03-10 04:50] LABS: PROSTATE SPECIFIC ANTIGEN 3.49 ng/ml (0.000-4.000)
[2017-03-10 05:28] LABS: INFLUENZA A PCR Neg for Influ A (NEG); INFLUENZA B PCR Neg for Influ B (NEG)
[2017-03-10] MEDS: LEVOTHYROXINE 75 MCG TAB PO SCH (05:30)
[2017-03-10] MEDS: THIAMINE HCL 100 MG TAB PO SCH (08:08)
[2017-03-10] MEDS: ASPIRIN 81 MG ECTAB PO SCH (08:08)
[2017-03-10] MEDS: PANTOprazole SOD 40 MG TAB PO SCH (08:08)
[2017-03-10] MEDS: MULTIVITAMIN TAB PO SCH (08:08)
[2017-03-10] MEDS: BOOST PLUS VANILLA PO SCH ×4 (08:08→20:56)
[2017-03-10] MEDS: TAMSULOSIN HCL 0.4 MG CAP PO SCH (08:09)
[2017-03-10] MEDS: PAROXETINE 20 MG TAB PO SCH (08:09)
[2017-03-10] MEDS: CARVEDILOL 6.25 MG TAB PO SCH ×2 (08:09→20:55)
[2017-03-10] MEDS: NICOTINE 14 MG/24 HR TDSY TD SCH (08:10)
--- NOTE | 2017-03-10 13:26 | Progress Note ---
Medicine Progress Note Date & Time of Visit: Mar 10, 2017 at 13:15. Subjective Pt was seen and examined Lying in bed with no distress eating lunch Pt said that he feels fine Yesterday he had difficulty swelling his food and food was stuck in his throat He denies any chest pain, palpitation, dizziness and sob Objective Last 8 Hrs Date Time Temp Pulse Resp B/P (MAP) Pulse Ox O2 Delivery O2 Flow Rate FiO2 03/10/17 11:40 36.7 77 19 100/63 (75) 94 Nasal Cannula 2.0 03/10/17 08:10 36.5 97 20 134/70 (91) 92 Nasal Cannula 3.0 03/10/17 08:00 Nasal Cannula 3.0 Physical Exam: General- No acute distress Head- atraumatic Eyes- PERRL, EOMI ENT- oropharynx clear Neck- supple, no JVD Lungs- clear to auscultation Heart- Irregular rhythm Abdomen- normal bowel sounds, soft Extremities- no calf tenderness Neuro- alert, oriented x 3; PERRL, EOMI; no facial palsy Skin- warm & dry Laboratory Results: Last 24 Hours Test 03/09/17 16:43 03/10/17 04:06 Activated Partial Thromboplast Time 54.6 SECONDS 62.5 SECONDS Partial Thromboplastin Ratio 2.1 2.4 White Blood Count 6.46 K/uL Red Blood Count 4.16 M/uL Hemoglobin 12.9 g/dL Hematocrit 38.5 % Mean Corpuscular Volume 92.5 fL Mean Corpuscular Hemoglobin 31.0 pg Mean Corpuscular Hemoglobin Concent 33.5 g/dl Platelet Count 119 K/uL Mean Platelet Volume 9.7 fL Neutrophils (%) (Auto) 72.8 % Lymphocytes (%) (Auto) 11.6 % Monocytes (%) (Auto) 14.2 % Eosinophils (%) (Auto) 0.8 % Basophils (%) (Auto) 0.3 % Neutrophils # (Auto) 4.70 K/uL Lymphocytes # (Auto) 0.75 K/uL Monocytes # (Auto) 0.92 K/uL Eosinophils # (Auto) 0.05 K/uL Basophils # (Auto) 0.02 K/uL RDW Standard Deviation 47.0 fL RDW Coefficient of Variation 13.9 % Immature Granulocyte % (Auto) 0.3 % Immature Granulocyte # (Auto) 0.02 K/uL Sodium Level 136 mmol/L Potassium Level 4.4 mmol/L Chloride Level 101 mmol/L Carbon Dioxide Level 29 mmol/L Anion Gap 6.0 mmol/L Blood Urea Nitrogen 16 mg/dl Creatinine 0.78 mg/dl Est Creatinine Clear Calc Drug Dose 54.2 ml/min Estimated GFR () 96.1 Estimated GFR (Non- 82.9 BUN/Creatinine Ratio 20.7 Random Glucose 75 mg/dl Calcium Level 8.6 mg/dl Prostate Specific Antigen 3.490 ng/ml Influenza Type A (RT-PCR) Neg for Influ A Influenza Type A Antigen Neg for Influ A Influenza Type B Antigen Neg for Influ B Influenza Type B (RT-PCR) Neg for Influ B Assessment & Plan Rapid atrial fibrillation. Rate was uncontrolled on admission Continue digoxin Rate has been controlled on digoxin and coreg On IV heparin drip Has not been follow with his cardiology in the past few years Was on anticoagulant in the past, but was discontinued Daughter not too sure why, but think possible due to fall Not a good candidate for anticoagulant due to fall Fell few weeks ago and few months ago he had a bad fall and his gait unsteady Cardiology consulted Case discussed with cardiology recommended to continue IV heparin for now Recent Echo showed * The left ventricle is normal in size. * Ejection Fraction = 55-60%. * The left ventricular wall motion is normal. * The right ventricular systolic function is normal. * The left atrium is borderline dilated. * Right atrial size is normal. * Mild valvular aortic stenosis. * Mild aortic regurgitation. Hypertension BP stable Continue coreg Coronary artery disease status post stenting. Denies any chest pain Troponin negative EKG showed Afib Tobacco abuse Counseling on smoking cessation On nicotine patch . Prostate cancer status post radiation As per daughter pt was treated Denies any hematuria Denies any bone pain CT showed Multiple sclerotic lesions seen within the thoracic spine and right seventh rib. This is consistent with osteoblastic metastatic disease. CT result discussed with family Case discussed with Oncology Dr. Rodriguez, recommended to get CT abd/pelvis and full body bone scan If something showed in the bone scan or CT scan abd/pelvis, might need additional work up such as biopsy Ambulatory dysfunction Fall precaution PT/OT Chronic anemia Hbg stable DVT px on heparin drip Code status Full code Consultants: Cardiology Current Inpatient Medications: Current Inpatient Medications Medications (Trade) Dose Ordered Sig/[place]ena Route Start Time Stop Time Status Last Admin Dose Admin Acetaminophen (Tylenol Tab) 650 mg Q4H PRN PO 03/09/17 05:30 04/08/17 05:29 Ondansetron HCl (Zofran Inj) 4 mg Q6H PRN IV 03/09/17 05:30 04/08/17 05:29 Nitroglycerin (Nitrostat Tab) 0.4 mg UD PRN SL 03/09/17 05:30 04/08/17 05:29 Aspirin (Ecotrin Tab) 81 mg DAILY PO 03/09/17 09:00 04/08/17 08:59 03/10/17 08:08 81 MG Carvedilol (Coreg Tab) 6.25 mg BID PO 03/09/17 21:00 04/08/17 20:59 03/10/17 08:09 6.25 MG Folic Acid (Folvite Tab) 1 mg DAILY PO 03/09/17 09:00 04/08/17 08:59 03/10/17 08:09 1 MG Levothyroxine Sodium (Synthroid Tab) 75 mcg DAILYBB PO 03/09/17 09:00 04/08/17 08:59 03/10/17 05:30 75 MCG Paroxetine HCl (pAXil TAB) 20 mg DAILY PO 03/09/17 09:00 04/08/17 08:59 03/10/17 08:09 20 MG Tamsulosin HCl (Flomax Cap) 0.4 mg DAILY PO 03/09/17 09:00 04/08/17 08:59 03/10/17 08:09 0.4 MG Thiamine HCl (Vitamin B-1 Tab) 100 mg DAILY PO 03/09/17 09:00 04/08/17 08:59 03/10/17 08:08 100 MG Trazodone HCl (Desyrel Tab) 25 mg HS PO 03/09/17 21:00 04/08/17 20:59 03/09/17 19:35 25 MG Pantoprazole Sodium (Protonix Tab) 40 mg DAILY PO 03/09/17 09:00 04/08/17 08:59 03/10/17 08:08 40 MG Multivitamins (Multivitamin Tab) 1 tab QAM PO 03/09/17 09:00 04/08/17 08:59 03/10/17 08:08 1 TAB Acetaminophen (Tylenol Tab) 650 mg Q4H PRN PO 03/09/17 07:45 04/08/17 07:44 Oxycodone/ Acetaminophen (Percocet 5-325mg Tab) 1 tab Q6H PRN PO 03/09/17 07:45 03/23/17 07:44 Prochlorperazine Edisylate 5 mg/ Syringe 5 ml @ 5 mls/min Q6H PRN IV 03/09/17 07:45 04/08/17 07:44 Lorazepam (Ativan Inj) 0.25 mg Q4H PRN IV 03/09/17 07:45 04/08/17 07:44 Ipratropium [place] (Atrovent 0.02% 0.5MG/2.5ML Neb) 0.5 mg Q4H PRN INH 03/09/17 08:00 04/08/17 07:59 Levalbuterol (Xopenex 1.25MG/ 0.5ML Neb) 1.25 mg Q4H PRN INH 03/09/17 08:00 04/08/17 07:59 Nicotine (Nicoderm Cq 14MG Patch) 1 patch QAM TD 03/09/17 09:00 04/08/17 08:59 Miscellaneous (Remove Nicoderm Patch) 1 ea HS N/A 03/09/17 21:00 04/08/17 20:59 Ioversol (Optiray 320) 100 ml UD PRN IV 03/09/17 08:15 03/13/17 08:14 Digoxin (Lanoxin Tab) 0.125 mg DAILY@1600 PO 03/09/17 16:00 04/08/17 15:59 03/09/17 16:21 0.125 MG Heparin Sodium/ Dextrose 500 ml @ 13 mls/hr Q24H PRN IV 03/09/17 10:00 04/08/17 09:59 03/09/17 10:38 13 MLS/HR Enteral Nutritional Formula (Boost Plus Vanilla) 1 can BID PO 03/09/17 21:00 04/08/17 20:59 03/10/17 08:08 1 CAN
[2017-03-10] MEDS ORDERED: OPTIRAY 320 IV PRN (13:45)
--- NOTE | 2017-03-10 14:15 | DIAGNOSTIC IMAGING REPORT ---
CT ABD/PELVIS IV CONTRAST ONLY CLINICAL HISTORY: Prostate carcinoma COMPARISON STUDY: None. TECHNIQUE: Following the IV administration of 94 mL of Optiray-320, CT scan of the abdomen and pelvis was performed from the lung bases to the proximal femurs. Images are reviewed in the axial, sagittal, and coronal planes. IV contrast was administered without complication. A dose lowering technique was utilized adhering to the principles of ALARA. CT DOSE: 369.83 mGy.cm FINDINGS: Lower chest: There are small bilateral pleural effusions. There is pulmonary emphysema. Liver: The contrast-enhanced liver is normal in size, contour, and attenuation. There is no intrahepatic biliary ductal dilatation. The hepatic veins and portal veins are patent. Gallbladder: Cholelithiasis Spleen: There is an 8 mm splenic hypodensity. The spleen is normal in size Pancreas: Unremarkable. Adrenal glands: Unremarkable. Kidneys: No solid renal masses are visualized. Renal calcifications are likely vascular. Bowel: There are no transition zones indicate bowel obstruction. There is colonic diverticulosis. There is no acute peridiverticular inflammatory change. The appendix is surgically absent by history. Peritoneum: There are bilateral inguinal hernias. The left internal hernia contains a small bowel loop. There are no current obstructive changes. Vasculature: The abdominal aorta is normal in course and caliber. Adenopathy: None. Pelvic viscera: Bladder wall thickening. There are bladder diverticula present. The prostate is enlarged measuring 5.2 cm. Skeletal structures: There is scattered sclerotic skeletal lesions, the largest of which involves the anterior superior aspect of the L3 vertebral body. This measures 19 mm. The study is degraded due to motion artifact. IMPRESSION: 1. Technically degraded study secondary to motion artifact 2. No evidence of bowel obstruction. No evidence of free air 3. Colonic diverticulosis. No evidence of acute diverticulitis 4. Bilateral inguinal hernias. The left inguinal hernia contains a small bowel loop. There is no current evidence of obstruction 5. Bladder wall thickening and bladder diverticula. Enlarged prostate 6. Scattered sclerotic skeletal lesions. 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 7. Cholelithiasis 8. Small bilateral pleural effusions Electronically signed by: Lev Rios M.D. 03/10/2017 2:14 PM Dictated Date/Time: 03/10/2017 2:07 PM
[2017-03-10] MEDS: HEPARIN 25,000 UNIT/500ML D5W 500 ML IV PRN (14:46)
[2017-03-10] MEDS: DIGOXIN 0.125 MG TAB PO SCH (16:13)
[2017-03-10] MEDS ORDERED: GUAIFENESIN SUGAR FREE 200 MG/10 ML UDC PO PRN (18:15)
[2017-03-10] MEDS: TRAZODONE HCL 50 MG TAB PO SCH (20:55)
[2017-03-11] VITALS (8 sets, daily range): BP systolic 90–145; BP diastolic 50–75; PULSE 68–91; TEMP 36.3–37.1; O2SAT 93–99
[2017-03-11 06:07] LABS: HEMATOCRIT 33.9 % (42-52); MEAN CELL VOLUME 91.1 fL (80-100); MEAN CORPUSCULAR HEMOGLOBIN 30.9 pg (25-34); MEAN CORPUSCULAR HGB CONC 33.9 g/dl (32-36); MEAN PLATELET VOLUME 9.9 fL (7.4-10.4); PLATELET COUNT 112 K/uL (130-400); RED BLOOD COUNT 3.72 M/uL (4.7-6.1); WHITE BLOOD COUNT 7.06 K/uL (4.8-10.8)
[2017-03-11] MEDS: LEVOTHYROXINE 75 MCG TAB PO SCH (06:22)
[2017-03-11 06:33] LABS: PARTIAL THROMBOPLASTIN RATIO 2.7
--- NOTE | 2017-03-11 07:08 | CARDIOLOGY CONSULTATION ---
DATE OF CONSULTATION: 03/10/2017 CONSULTATION FOR: Lizbeth carlton. REASON FOR CONSULTATION: Atrial fibrillation with RVR. HISTORY OF PRESENT ILLNESS: This is an 86-year-old male patient who has been a refugee from cardiac care for many years. He had been following with Dr. Sanders in [place], but has not seen him for about 5 years. The patient states that approximately 6 years ago, he had a stent placed in his heart in [place]. He then followed with Dr. Sanders for a while and then was lost to follow up. He does see his primary care physician, Dr. Farmer about every 6 months. The patient has a history of cigarette smoking with tobacco associated lung disease and COPD. He may have had a previous history of atrial fibrillation, but has not been on long-term anticoagulation, perhaps due to noncompliance. In any case, he was in his usual state of health until a few days ago, he began to feel poorly. He had a poor appetite and loose stools. He presented to [facility], where he was noted to be in atrial fibrillation with RVR and was transferred to [facility] for further cardiac care. The patient was started on a combination of carvedilol and digoxin, which have stabilized his heart rate. He has been given albuterol treatments and in general, overall feels much improved. He has no additional cardiac complaints. He remains in atrial fibrillation with controlled heart rate this morning. His cardiac markers are negative on admission. EKG at present is atrial fibrillation with poor R-wave progression across the precordium, suggesting a previous septal wall infarct. ALLERGIES: No known medical allergies. PAST MEDICAL HISTORY: As outlined in the history of chief complaint. The patient has a history of coronary artery disease with previous coronary stent in [place]. It is uncertain if that was during an acute coronary syndrome or as a result of angina. The patient has a longstanding history of cigarette smoking with tobacco associated COPD and chronic bronchitis. He also has a history of atrial fibrillation, whether or not that is chronic or paroxysmal is unknown. He has not been on long-term anticoagulation, perhaps due to medical noncompliance. His echocardiogram performed this admission reveals normal LV function with an estimated left ventricular ejection fraction of around 55%. There were no wall motion abnormalities that would suggest underlying coronary artery disease. The patient has mild valvular aortic stenosis and moderate to severe mitral regurgitation. SOCIAL HISTORY: The patient lives independently. He is a current smoker and drinks alcohol daily. He is a retired construction labor. FAMILY MEDICAL HISTORY: Noncontributory. REVIEW OF SYSTEMS: A 10-point review of systems is negative except for the history of chief complaint. PHYSICAL EXAMINATION: GENERAL: He is alert and oriented. VITAL SIGNS: Blood pressure is 130/80 and pulse is irregular at 70 beats per minute. He is afebrile. HEENT: He is normocephalic. Pupils are equal and reactive to light. Extraocular muscles are intact bilaterally. NECK: The neck veins are flat. Carotids have good upstrokes bilaterally without bruits. Thyroid is nonpalpable. RESPIRATORY: Breath sounds are equal bilaterally and clear to auscultation. CARDIOVASCULAR: Heart has an irregular rhythm. There is a holosystolic murmur at the apex of the heart. GASTROINTESTINAL: Abdomen is soft and nontender without organomegaly. EXTREMITIES: Free of edema, digit clubbing, or cyanosis. NEUROLOGIC: Grossly intact. SKIN: Warm to touch. LYMPH NODES: Negative to palpation. LABORATORY DATA: Per the history of chief complaint. IMPRESSION: 1. Atrial fibrillation with rapid ventricular response. 2. Chronic versus paroxysmal atrial fibrillation. 3. Known coronary artery disease with prior coronary stent. 4. Preserved left ventricular systolic function without wall motion abnormalities on echocardiography. 5. 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 6. The patient appears to be cachectic, which may be related to the chronic obstructive pulmonary disease, but malnutrition is a possibility. 7. History of prostate cancer, status post radiation and possible bone mets. 8. Chronic alcohol abuse. RECOMMENDATIONS: At this point I would recommend only rate control for the patient's atrial fibrillation. I would continue the Coreg and digoxin. He can be anticoagulated here in the hospital; however, I would consider him not a great candidate for long-term anticoagulation due to his previous history of possible noncompliance. We will follow along with you during his hospital stay.
[2017-03-11] MEDS: ASPIRIN 81 MG ECTAB PO SCH (08:44)
[2017-03-11] MEDS: PAROXETINE 20 MG TAB PO SCH (08:44)
[2017-03-11] MEDS: MULTIVITAMIN TAB PO SCH (08:44)
[2017-03-11] MEDS: PANTOprazole SOD 40 MG TAB PO SCH (08:45)
[2017-03-11] MEDS: TAMSULOSIN HCL 0.4 MG CAP PO SCH (08:45)
[2017-03-11] MEDS: THIAMINE HCL 100 MG TAB PO SCH (08:45)
[2017-03-11] MEDS: NICOTINE 14 MG/24 HR TDSY TD SCH (08:46)
[2017-03-11] MEDS: CARVEDILOL 6.25 MG TAB PO SCH (08:53)
[2017-03-11] MEDS: BOOST PLUS VANILLA PO SCH ×4 (08:53→20:14)
--- NOTE | 2017-03-11 09:00 | Clinical Documentation Query ---
CLINICAL DOCUMENTATION QUERY 86-y/o male who presents with Atrial Fibrillation With Rvr, Diarrhea,& Dehydration In your clinical opinion is this patient being managed for: ( ) Severe malnutrition ( ) Moderate malnutrition ( ) Not Agree ( ) Other explanation of clinical findings (Please Explain) ( ) Unable to determine (Please Define) ( ) Need to Discuss The medical record reflects the following clinical findings, treatment, and risk factors. Clinical Indicators: "Thin", BMI 15.5, Wt 50.5 kg, RBC's 3.72, RD consult states patient is only 70% of ideal BW, Underweight, and only ate 25% of Breakfast. Treatment: Boost TID, RD consult, Risk Factors: Age, ?alcoholism, Cancer Please clarify and document your clinical opinion in the progress notes and discharge summary. Terms such as "probable", "suspected", "likely", "questionable", "possible", or "still to be ruled out" are acceptable. IF IN AGREEMENT, YOU MUST DOCUMENT ABOVE DIAGNOSTIC STATEMENT IN DAILY PROGRESS NOTES AND DISCHARGE SUMMARY. This document is not part of the patient's record. Malnutrition Characteristics (2 of 6) in Acute Illness/Injury CHARACTERISTICS MODERATE MALNUTRITION SEVERE MALNUTRITION ENERGY INTAKE <75% of estimated energyrequirement for >7 days <50% of estimated energyrequirement for >5 days WEIGHT LOSS 1-2%/1 week 5%/1 month 7.5%/3 months >1-2%/1 week >5%/1 month >7.5%/3 months BODY FAT*loss of SQ fat from the orbits,triceps, or fat overlying the ribs MILD MODERATE MUSCLE MASS*muscle wasting at the temples,clavicles, shoulders, interosseousspaces,scapula, thigh, calf MILD MODERATE FLUID ACCUMULATION*localized or generalized edemaof the extremities, vulva, scrotumweight loss may be masked byedema MILD MODERATE-SEVERE CREDIT CONTROL ADMINISTRATOR STRENGTH N/A measurably decreased perthe device's standards Malnutrition Characteristics (2 of 6) in Chronic Illness CHARACTERISTICS MODERATE MALNUTRITION SEVERE MALNUTRITION ENERGY INTAKE <75% of estimated energyrequirement for >1 month <75% of estimated energyrequirement for >1 month WEIGHT LOSS 5%/1 month 7.5%/3 months 10%/6 months 20%/1 year > 5%/1 month >7.5%/3 months >10%/6 months >20%/1 year BODY FAT*loss of SQ fat from the orbits,triceps, or fat overlying the ribs MILD SEVERE MUSCLE MASS*muscle wasting at the temples,clavicles, shoulders, interosseousspaces,scapula, thigh, calf MILD SEVERE FLUID ACCUMULATION*localized or generalized edemaof the extremities, vulva, scrotumweight loss may be masked byedema MILD SEVERE CREDIT CONTROL ADMINISTRATOR STRENGTH N/A measurably decreased perthe device's standards Thank You, Charanjit Benito, RN [phone]
--- NOTE | 2017-03-11 10:38 | Cardiology Follow-Up ---
Subjective General Date of Service: Mar 11, 2017. Chief Complaint: SOB; Afib Pt evaluation today including: conversation w/ patient, physical exam, chart review, lab review, review of studies, review of inpatient medication list History of Present Illness Patient feeling ok this AM. Notes SOB improving. Palpitations improved. No dizziness. BP borderline low this AM No chest pain. No orthopnea, PND or edema. Allergies Coded Allergies: No Known Allergies (Unverified , 03/09/17) Social History Smoking Status: Current Every Day Smoker (1/2 pack per shell) Hx Tobacco Use In Past Year?: Yes Hx Alcohol Use - Type And Amou: No Hx Substance Use - Type And Am: Yes Problem List Medical Problems: (1) CAD (coronary artery disease) Status: Chronic (2) CHF (congestive heart failure) Status: Chronic (3) HTN (hypertension) Status: Chronic Review of Systems Respiratory: + cough, + shortness of breath, + dyspnea on exertion, No sputum, No hemoptysis Cardiac: No chest pain, No orthopnea, No PND, No edema, No palpitations Physical Exam Vital Signs Last Vital Signs Documentation Date Time Temp Pulse Resp B/P (MAP) Pulse Ox O2 Delivery O2 Flow Rate FiO2 03/11/17 08:34 36.3 68 20 90/50 (63) 95 Nasal Cannula 2.0 Physical Exam Constitutional: General Apperance: cachectic Level of Distress: acutely ill, chronically ill Psychiatric: Mental Status: active & alert Orientation: to time, to place, to person Head: normocephalic Neck: supple Lungs: Auscultation: deminished air movement, decreased breath sounds, expiratory wheezing Cardiovascular: Heart Auscultation: II/ MICAH, irregular rate rhythm Extremities: no edema Assessment and Plan Assessment and Plan IMPRESSION: 1. Atrial fibrillation with rapid ventricular response, rates improved on home dose digoxin/carvedilol. Duration unknown. 2. COPD with chronic tobacco abuse - 3. History of CAD s/p remote stent - preserved LV function on echo. No anginal symptoms 4. History of prostate cancer with likely bone Mets noted on CT scan PLAN: Heart rates have greatly improved with resumption of outpatient digoxin and carvedilol dose. Duration of afib unknown. Recommend rate control. He is currently receiving IV heparin here in the hospital, however, given his fall risk (admits to poor balance/gait instability), history of non compliance, metastatic prostate CA, and overall frailty, mcc anticoagulation not recommended. Would consider transitioning IV heparin to SQ hep DVT prophylaxis dose. Continue ASA 81 mg daily. Recommend PT/OT and placement. Case to be discussed with Dr. Stewart. CARDIOLOGY ATTENDING ADDENDUM: The patient was seen and personally examined. Agree with Kavita Cox PA-C's findings and plans as documented above and additions noted below. S: pt without complaints. Currently during my assessment the patient is awake in bed, atrial fibrillation with controlled ventricular rate in the 70-80 beat per minute range is present. Earlier on today from 10:30 AM until approximately 3 PM, atrial fibrillation with slow ventricular rate was noted. This was especially noted during times of sleep. Today, 03/11/17 at 2:34 PM a 3 second pause was noted while sleeping. The patient was a symptomatic at that time. His a.m. dose of carvedilol have been held. Exam: Irregular rhythm, 1/6 systolic murmur Extremities: No edema Data: On barium swallow, some aspiration noted. Whole-body bone scan revealed diffuse bony metastatic disease involving the thoracic spine and ribs. Impression: 86-year-old male 1. Diagnosed atrial fibrillation, controlled ventricular rate, bradycardia noted earlier today, he symptomatically 2. Prostate carcinoma with bone metastasis 3. Normal left ventricular ejection fraction, mild aortic valve stenosis, mild aortic valve regurgitation, moderate to severe mitral regurgitation, mild left atrial dilatation Plan: Reduce carvedilol from 6.25 mg twice a day to 3.125 mg daily. Continue same dose of digoxin. Continue heparin infusion for stroke prophylaxis. She certainly at risk for bleeding complication given his generalized frailty, but he is also at significant risk for cardiac embolic stroke given his age and underlying malignancy. At this point, we'll start low-dose warfarin, although over time, the benefits and risks of anticoagulation will need to be reassessed. Cande Stewart, DO Laboratory Results Last 24 Hours Test 03/11/17 05:25 White Blood Count 7.06 K/uL Red Blood Count 3.72 M/uL Hemoglobin 11.5 g/dL Hematocrit 33.9 % Mean Corpuscular Volume 91.1 fL Mean Corpuscular Hemoglobin 30.9 pg Mean Corpuscular Hemoglobin Concent 33.9 g/dl RDW Standard Deviation 45.2 fL RDW Coefficient of Variation 13.5 % Platelet Count 112 K/uL Mean Platelet Volume 9.9 fL Activated Partial Thromboplast Time 71.3 SECONDS Partial Thromboplastin Ratio 2.7
[2017-03-11 14:02] LABS: PARTIAL THROMBOPLASTIN RATIO 1.9
--- NOTE | 2017-03-11 15:11 | DIAGNOSTIC IMAGING REPORT ---
VIDEO SWALLOW STUDY CLINICAL HISTORY: Aspiration. COMPARISON STUDY: No priors. Fluoroscopy time: 3.6 minutes. FINDINGS: Fluoroscopic guidance was provided to the Department of Speech Pathology in performing a video swallow study. The patient consumed barium-impregnated cracker with paste, pudding, nectar thick liquid, and thin barium while the swallowing mechanism was observed in real-time. Silent aspiration was seen with thin barium. There was pharyngeal penetration without evidence of aspiration seen on the nectar thick liquid texture. No penetration or aspiration was seen with the pudding or cracker with paste. Mild esophageal dysmotility is observed. IMPRESSION: 1. Silent aspiration was seen with thin barium. 2. No aspiration was seen with the remaining sampled textures. 3. See dedicated Speech Pathology report for detailed findings and recommendations. Dictated: 03/11/2017 2:56 PM Transcribed: 03/11/2017 3:11 PM Marcus Electronically signed by: Casa Sampson M.D. 03/11/2017 3:11 PM Dictated Date/Time: 03/11/2017 2:56 PM
--- NOTE | 2017-03-11 16:48 | DIAGNOSTIC IMAGING REPORT ---
BONE SCAN WHOLE BODY HISTORY: Prostate carcinoma Hx prostate ca/ Multiple sclerotic lesions seen on CTA chest RADIOTRACER: 25.8 mCi Tc-99m MDP STUDY/IMAGES: Planar anterior and posterior whole body imaging was performed 3 hours following the intravenous administration of radiotracer. COMPARISON: CTA of the chest dated 03/09/2017 FINDINGS: Intense increase in activity involving the left pedicle of L3. Scattered increase in the level activity of the T11 and T12 levels of the lumbar spine. Intense increase in activity of the T9 level of the thoracic spine. Low-level scattered foci of increased activity involving the ribs bilaterally. Increase in activity of the right costovertebral junction at T3. No abnormal soft tissue activity characteristics. IMPRESSION: Diffuse bony metastatic disease primarily involving the thoracic spine and ribs. The above report was generated using voice recognition software. It may contain grammatical, syntax or spelling errors. Electronically signed by: Les Ram M.D. 03/11/2017 4:46 PM Dictated Date/Time: 03/11/2017 4:41 PM
[2017-03-11] MEDS: DIGOXIN 0.125 MG TAB PO SCH (17:17)
[2017-03-11] MEDS ORDERED: WARFARIN SOD 2.5 MG TAB PO ONE (18:30)
--- NOTE | 2017-03-11 18:55 | Progress Note ---
Medicine Progress Note Date & Time of Visit: Mar 11, 2017 at 12:48. Subjective Pt was seen and examined Lying in bed with no distress Pt said that he feels fine Denies any chest pain, palpitation, dizziness and SOB Objective Last 8 Hrs Date Time Temp Pulse Resp B/P (MAP) Pulse Ox O2 Delivery O2 Flow Rate FiO2 03/11/17 17:17 77 03/11/17 16:00 Nasal Cannula 2.0 Humidified Oxygen 03/11/17 15:29 36.3 70 18 125/66 (85) 99 Nasal Cannula 2.0 03/11/17 12:17 36.5 91 16 98/60 (73) 98 03/11/17 12:00 Nasal Cannula 2.0 Humidified Oxygen Physical Exam: General- No acute distress Head- atraumatic Eyes- PERRL, EOMI ENT- oropharynx clear Neck- supple, no JVD Lungs- clear to auscultation Heart- Irregular rhythm Abdomen- normal bowel sounds, soft Extremities- no calf tenderness Neuro- alert, oriented x 3; PERRL, EOMI; no facial palsy Skin- warm & dry Laboratory Results: Last 24 Hours Test 03/11/17 05:25 03/11/17 11:51 03/11/17 13:14 White Blood Count 7.06 K/uL Red Blood Count 3.72 M/uL Hemoglobin 11.5 g/dL Hematocrit 33.9 % Mean Corpuscular Volume 91.1 fL Mean Corpuscular Hemoglobin 30.9 pg Mean Corpuscular Hemoglobin Concent 33.9 g/dl RDW Standard Deviation 45.2 fL RDW Coefficient of Variation 13.5 % Platelet Count 112 K/uL Mean Platelet Volume 9.9 fL Activated Partial Thromboplast Time 71.3 SECONDS 49.5 SECONDS Partial Thromboplastin Ratio 2.7 1.9 Bedside Glucose 86 mg/dl Assessment & Plan Atrial fibrillation. Rate was uncontrolled on admission Continue digoxin Rate has been controlled on digoxin and coreg On IV heparin drip Has not been follow with his cardiology in the past few years Was on anticoagulant in the past, but was discontinued Daughter not too sure why, but think possible due to fall Not a good candidate for anticoagulant due to fall Fell few weeks ago and few months ago he had a bad fall and his gait unsteady Cardiology consulted Case discussed with cardiology recommended to continue IV heparin for now 03/11 Continue heparin IV Carvedilol decreased to 3.125 mg Continue digoxin Starting on Coumadin 2.5 mg today Check INR in am Cardiology on board Recent Echo showed * The left ventricle is normal in size. * Ejection Fraction = 55-60%. * The left ventricular wall motion is normal. * The right ventricular systolic function is normal. * The left atrium is borderline dilated. * Right atrial size is normal. * Mild valvular aortic stenosis. * Mild aortic regurgitation. Hypertension BP stable Continue coreg Coronary artery disease status post stenting. Denies any chest pain Troponin negative EKG showed Afib Tobacco abuse Counseling on smoking cessation On nicotine patch . Prostate cancer status post radiation As per daughter pt was treated Denies any hematuria Denies any bone pain CT showed Multiple sclerotic lesions seen within the thoracic spine and right seventh rib. This is consistent with osteoblastic metastatic disease. CT result discussed with family Case discussed with Oncology Dr. Rodriguez, recommended to get CT abd/pelvis and full body bone scan If something showed in the bone scan or CT scan abd/pelvis, might need additional work up such as biopsy 03/11 Bone scan done today showed diffuse bony metastatic disease primarily involving the thoracic spine and ribs. Result discussed with pt Consult oncology Ambulatory dysfunction Fall precaution PT/OT PT recommended inpatient skills rehab Chronic anemia Hbg stable DVT px on heparin drip Code status Full code Consultants: Cardiology Current Inpatient Medications: Current Inpatient Medications Medications (Trade) Dose Ordered Sig/Magdalena Route Start Time Stop Time Status Last Admin Dose Admin Acetaminophen (Tylenol Tab) 650 mg Q4H PRN PO 03/09/17 05:30 04/08/17 05:29 Ondansetron HCl (Zofran Inj) 4 mg Q6H PRN IV 03/09/17 05:30 04/08/17 05:29 Nitroglycerin (Nitrostat Tab) 0.4 mg UD PRN SL 03/09/17 05:30 04/08/17 05:29 Aspirin (Ecotrin Tab) 81 mg DAILY PO 03/09/17 09:00 04/08/17 08:59 03/11/17 08:44 81 MG Folic Acid (Folvite Tab) 1 mg DAILY PO 03/09/17 09:00 04/08/17 08:59 03/11/17 08:45 1 MG Levothyroxine Sodium (Synthroid Tab) 75 mcg DAILYBB PO 03/09/17 09:00 04/08/17 08:59 03/11/17 06:22 75 MCG Paroxetine HCl (pAXil TAB) 20 mg DAILY PO 03/09/17 09:00 04/08/17 08:59 03/11/17 08:44 20 MG Tamsulosin HCl (Flomax Cap) 0.4 mg DAILY PO 03/09/17 09:00 04/08/17 08:59 03/11/17 08:45 0.4 MG Thiamine HCl (Vitamin B-1 Tab) 100 mg DAILY PO 03/09/17 09:00 04/08/17 08:59 03/11/17 08:45 100 MG Trazodone HCl (Desyrel Tab) 25 mg HS PO 03/09/17 21:00 04/08/17 20:59 03/10/17 20:55 25 MG Pantoprazole Sodium (Protonix Tab) 40 mg DAILY PO 03/09/17 09:00 04/08/17 08:59 03/11/17 08:45 40 MG Multivitamins (Multivitamin Tab) 1 tab QAM PO 03/09/17 09:00 04/08/17 08:59 03/11/17 08:44 1 TAB Acetaminophen (Tylenol Tab) 650 mg Q4H PRN PO 03/09/17 07:45 04/08/17 07:44 Oxycodone/ Acetaminophen (Percocet 5-325mg Tab) 1 tab Q6H PRN PO 03/09/17 07:45 03/23/17 07:44 Prochlorperazine Edisylate 5 mg/ Syringe 5 ml @ 5 mls/min Q6H PRN IV 03/09/17 07:45 04/08/17 07:44 Lorazepam (Ativan Inj) 0.25 mg Q4H PRN IV 03/09/17 07:45 04/08/17 07:44 Ipratropium [place] (Atrovent 0.02% 0.5MG/2.5ML Neb) 0.5 mg Q4H PRN INH 03/09/17 08:00 04/08/17 07:59 03/10/17 16:24 0.5 MG Levalbuterol (Xopenex 1.25MG/ 0.5ML Neb) 1.25 mg Q4H PRN INH 03/09/17 08:00 04/08/17 07:59 03/10/17 16:24 1.25 MG Nicotine (Nicoderm Cq 14MG Patch) 1 patch QAM TD 03/09/17 09:00 04/08/17 08:59 Miscellaneous (Remove Nicoderm Patch) 1 ea HS N/A 03/09/17 21:00 04/08/17 20:59 03/10/17 20:56 1 EA Ioversol (Optiray 320) 100 ml UD PRN IV 03/09/17 08:15 03/13/17 08:14 Digoxin (Lanoxin Tab) 0.125 mg DAILY@1600 PO 03/09/17 16:00 04/08/17 15:59 03/11/17 17:17 0.125 MG Heparin Sodium/ Dextrose 500 ml @ 12 mls/hr Q24H PRN IV 03/09/17 10:00 04/08/17 09:59 03/10/17 14:46 13 MLS/HR Enteral Nutritional Formula (Boost Plus Vanilla) 1 can BID PO 03/09/17 21:00 04/08/17 20:59 03/11/17 08:53 1 CAN Ioversol (Optiray 320) 100 ml UD PRN IV 03/10/17 13:45 03/14/17 13:44 Guaifenesin (Robitussin Sugar Free Syrup) 200 mg Q8 PRN PO 03/10/17 18:15 04/09/17 18:14 Warfarin Sodium (Coumadin Tab) 2.5 mg DAILY@16 PO 03/12/17 16:00 04/11/17 15:59 Carvedilol (Coreg Tab) 3.125 mg BID PO 03/11/17 21:00 04/10/17 20:59
[2017-03-11] MEDS: TRAZODONE HCL 50 MG TAB PO SCH (20:15)
[2017-03-11] MEDS: CARVEDILOL 3.125 MG TAB PO SCH (20:16)
[2017-03-12] VITALS (8 sets, daily range): BP systolic 105–165; BP diastolic 59–78; PULSE 74–103; TEMP 36.5–37.5; O2SAT 88–99
[2017-03-12] MEDS: LEVOTHYROXINE 75 MCG TAB PO SCH (05:52)
[2017-03-12 06:55] LABS: HEMATOCRIT 35.3 % (42-52); MEAN CELL VOLUME 90.1 fL (80-100); MEAN CORPUSCULAR HEMOGLOBIN 30.9 pg (25-34); MEAN CORPUSCULAR HGB CONC 34.3 g/dl (32-36); MEAN PLATELET VOLUME 10.2 fL (7.4-10.4); PLATELET COUNT 132 K/uL (130-400); RED BLOOD COUNT 3.92 M/uL (4.7-6.1); WHITE BLOOD COUNT 5.79 K/uL (4.8-10.8)
[2017-03-12] MEDS: HEPARIN 25,000 UNIT/500ML D5W 500 ML IV PRN ×2 (07:02→09:46)
[2017-03-12 07:10] LABS: INR 1.1 (0.9-1.1); PARTIAL THROMBOPLASTIN RATIO 1.7; PROTHROMBIN TIME (PATIENT) 11.4 SECONDS (9.0-12.0)
--- NOTE | 2017-03-12 08:44 | Medical Consult ---
Consultation Date of Consultation: Mar 12, 2017. Attending Physician: Elinor Jacob M.D. 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 Date of consultation: 03/12/2017 HPI: 86-year-old male, who has few other comorbid conditions, recently he was seen at [facility] ER for increasing shortness of breath, found to have rapid atrial fibrillation, he was then transferred to [facility] for further evaluation. Now receiving IV heparin and also started him on oral Coumadin for long-term anticoagulant treatment. Also diagnosed a case of prostate cancer earlier in 2006. I do not have those records for the review. PSA level was around 6.6 (09/06/2004)--> 7.4 (07/11/2006). He says that he had a radiation treatment for the prostate cancer diagnosis in [place]. As per the chart review, he was seen at [facility]. He says that he has not seen them for the last several years. -PSA level--> 0.3 (June,)--> 0.76 (March,)--> 1.21 (July,)-- > 2.1 (July,). Additional workup done during this hospital showed multiple osteoblastic bony changes noted in the spine which are suspicious for the metastatic disease. I saw him at bedside, he is feeling quite weak and tired but he says that shortness of breath has improved, has cough with scanty white expectorant, poor oral intake noted, aspiration present in the recent the swallow study, he denies any increasing back pain or bone pain. REVIEW OF SYSTEMS: GENERAL: Some weight loss was present earlier in the year but now it is stable , his weight was around 140 lb, current weight is around 120 lb feeling weak and tired, no fever or chills. SKIN: No skin rash, no bruising. HEAD: No new headache, no dizziness. EYES: No recent change in the vision, no diplopia, EARS: No earache no tinnitus, impaired hearing present. NOSE: No epistaxis, No nasal discharge or stuffiness, MOUTH: No sores, trouble swallowing present, no hoarseness of voice, NECK: No lumps, No swelling in thyroid area. No stiffness. PULMONARY: Cough with scanty white expectant present, he had a shortness of breath which has improved, no hemoptysis, no chest pain, some wheezing present. CARDIOVASCULAR: No anginal chest pain, no PND, no orthopnea. No palpitation, no leg edema. No syncope. GASTROINTESTINAL: No abdominal pain, no nausea or vomiting. No diarrhea, No constipation. No blood in stool or black tarry stools. No abdominal distention. UROLOGIC: No burning urination. No hematuria. Increased frequency of urination present. MUSCULOSKELETAL: No joint pain, No joint swelling, no muscle weakness. Denies any increasing back pain or bone pain. HEMATOLOGIC: No anemia, no bleeding disorder, No bruising. NEUROLOGIC: No seizures, no focal weakness, no speech difficulty, some memory disturbances. No tingling or numbness of the extremities. PSYCHIATRIC: No depression. No anxiety. No psychosis. SLEEP: No sleep disorder. Past medical and surgical history: -atrial fibrillation, COPD, prostate cancer, S/P the radiation treatment in [place] now. -hypothyroidism. Social history: Smokes cigarettes perhaps half pack per day. Chronic ETOH abuse. Family history: Not significant. Medications: Please review his chart for detailed list of medications. Now started him on oral Coumadin for underlying cardiac arrhythmia (atrial fibrillation). Allergies: None On exam: - Alert and oriented x3, in built man, not in any distress. - HEENT: no icterus, no pallor, Throat: Normal. - Neck: No palpable cervical lymphadenopathy. - Chest: Emphysematous chest noted, bilateral crepitations noted in the lower lung rajput. - Abdomen: soft, nontender, no hepatomegaly, no splenomegaly. - No focal neuro deficit. - Extremities: no finger clubbing, no leg edema. Lab: -WBC 5700, H&H of 12/35, Platelet count of of 130,000 (03/12/2017) -BUN/Creat: 16/0.7, calcium 8.6 -PSA level--> 3.49 (03/10/2017) -PT 11.4, PTT 43.7 (03/12/2017, on IV heparin infusion) Imaging: -Chest x-ray done on 02/27/2017--> no acute process reported. -CT scan of the head done on 03/09/2017--> no acute intracranial abnormality noted. Atrophy and microvascular ischemic changes noted. Acute on chronic paranasal sinusitis noted. -CT scan of the chest done on 03/09/2017--> no evidence of pulmonary embolism. Near complete opacification of the bilateral lower lobe segmental and subsegmental bronchi with secretions. Moderate emphysematous changes noted, multiple sclerotic changes noted in the thoracic spine and right 7th rib. Trace bilateral pleural effusion noted. -CT scan of the abdomen and pelvis done on 03/10/2017 after no evidence of bowel obstruction, colonic diverticulosis noted, bilateral inguinal hernia noted , thickening of the bladder wall. Enlarged prostate noted. Scattered sclerotic lesions involving the schedule structure mainly involving the L3 vertebral body measuring 1.9 cm. - Swallow study done on 03/11/2017--> Silent aspiration noted. -Bone scan done on 03/11/2017--> diffuse bony metastatic disease involving the thoracic spine and the ribs. Mainly T11, T12, T9, L3 vertebral body. ASSESSMENT AND PLAN: 86-year-old male, who is admitted at [facility] for atrial fibrillation with rapid ventricular rate, now also imaging study shows osteoblastic bony metastatic disease lesions involving the spine. He was diagnosed a case of prostate cancer somewhere in 2006, his PSA level was around 7.4 at that time, he did receive radiation treatment for prostate cancer diagnosis in [place], I do not have any records about the pathology as well as the treatment that he received. Subsequently his PSA level had remained on the lower side but not 0. Over the last several years PSA level has progressively increased, latest value is around 3.4 during this hospitalization. He does not have any increasing back pain or bone pain. Normal calcium level. Normal kidney function test noted. Overall clinical picture appears to be metastatic prostate cancer involving the multiple bones mainly in the spine. He is otherwise asymptomatic from that.. I would like to review his records regarding prostate cancer diagnosis and treatment that he received. I would not consider for biopsy of the bone lesions at this time. He does not require an specific treatment for prostate cancer while he is in the hospital. Will consider for hormonal treatment (with Lupron) as an outpatient. Other option would be that he continue to follow-up with the urologist at [facility]. Thanks for the consultation. Dr. Augie Zaman Hem/Onc (This note was completed using the dictation program Fluency Direct. As such, there may be misspellings, word substitutions, or other variations that should not change the essence of the clinical content of this encounter note. If there is need for further clarification, please direct questions to the provider listed above.) Past Medical/Surgical History Medical Problems: (1) CAD (coronary artery disease) Status: Chronic (2) CHF (congestive heart failure) Status: Chronic (3) HTN (hypertension) Status: Chronic Family History FH: cancer Social History Smoking Status: Current Every Day Smoker (1/2 pack per shell) Drug Use: none Marital Status: other Housing Status: lives alone Occupation Status: retired Allergies Coded Allergies: No Known Allergies (Unverified , 03/09/17) Current Inpatient Medications Current Inpatient Medications Medications (Trade) Dose Ordered Sig/[place]dalena Route Start Time Stop Time Status Last Admin Dose Admin Acetaminophen (Tylenol Tab) 650 mg Q4H PRN PO 03/09/17 05:30 04/08/17 05:29 Ondansetron HCl (Zofran Inj) 4 mg Q6H PRN IV 03/09/17 05:30 04/08/17 05:29 Nitroglycerin (Nitrostat Tab) 0.4 mg UD PRN SL 03/09/17 05:30 04/08/17 05:29 Aspirin (Ecotrin Tab) 81 mg DAILY PO 03/09/17 09:00 04/08/17 08:59 03/11/17 08:44 81 MG Folic Acid (Folvite Tab) 1 mg DAILY PO 03/09/17 09:00 04/08/17 08:59 03/11/17 08:45 1 MG Levothyroxine Sodium (Synthroid Tab) 75 mcg DAILYBB PO 03/09/17 09:00 04/08/17 08:59 03/12/17 05:52 75 MCG Paroxetine HCl (pAXil TAB) 20 mg DAILY PO 03/09/17 09:00 04/08/17 08:59 03/11/17 08:44 20 MG Tamsulosin HCl (Flomax Cap) 0.4 mg DAILY PO 03/09/17 09:00 04/08/17 08:59 03/11/17 08:45 0.4 MG Thiamine HCl (Vitamin B-1 Tab) 100 mg DAILY PO 03/09/17 09:00 04/08/17 08:59 03/11/17 08:45 100 MG Trazodone HCl (Desyrel Tab) 25 mg HS PO 03/09/17 21:00 04/08/17 20:59 03/11/17 20:15 25 MG Pantoprazole Sodium (Protonix Tab) 40 mg DAILY PO 03/09/17 09:00 04/08/17 08:59 03/11/17 08:45 40 MG Multivitamins (Multivitamin Tab) 1 tab QAM PO 03/09/17 09:00 04/08/17 08:59 03/11/17 08:44 1 TAB Acetaminophen (Tylenol Tab) 650 mg Q4H PRN PO 03/09/17 07:45 04/08/17 07:44 Oxycodone/ Acetaminophen (Percocet 5-325mg Tab) 1 tab Q6H PRN PO 03/09/17 07:45 03/23/17 07:44 Prochlorperazine Edisylate 5 mg/ Syringe 5 ml @ 5 mls/min Q6H PRN IV 03/09/17 07:45 04/08/17 07:44 Lorazepam (Ativan Inj) 0.25 mg Q4H PRN IV 03/09/17 07:45 04/08/17 07:44 Ipratropium [place] (Atrovent 0.02% 0.5MG/2.5ML Neb) 0.5 mg Q4H PRN INH 03/09/17 08:00 04/08/17 07:59 03/10/17 16:24 0.5 MG Levalbuterol (Xopenex 1.25MG/ 0.5ML Neb) 1.25 mg Q4H PRN INH 03/09/17 08:00 04/08/17 07:59 03/10/17 16:24 1.25 MG Nicotine (Nicoderm Cq 14MG Patch) 1 patch QAM TD 03/09/17 09:00 04/08/17 08:59 Miscellaneous (Remove Nicoderm Patch) 1 ea HS N/A 03/09/17 21:00 04/08/17 20:59 03/10/17 20:56 1 EA Ioversol (Optiray 320) 100 ml UD PRN IV 03/09/17 08:15 03/13/17 08:14 Digoxin (Lanoxin Tab) 0.125 mg DAILY@1600 PO 03/09/17 16:00 04/08/17 15:59 03/11/17 17:17 0.125 MG Heparin Sodium/ Dextrose 500 ml @ 12 mls/hr Q24H PRN IV 03/09/17 10:00 04/08/17 09:59 03/12/17 07:02 12 MLS/HR Enteral Nutritional Formula (Boost Plus Vanilla) 1 can BID PO 03/09/17 21:00 04/08/17 20:59 03/11/17 20:14 1 CAN Ioversol (Optiray 320) 100 ml UD PRN IV 03/10/17 13:45 03/14/17 13:44 Guaifenesin (Robitussin Sugar Free Syrup) 200 mg Q8 PRN PO 03/10/17 18:15 04/09/17 18:14 Warfarin Sodium (Coumadin Tab) 2.5 mg DAILY@16 PO 03/12/17 16:00 04/11/17 15:59 Carvedilol (Coreg Tab) 3.125 mg BID PO 03/11/17 21:00 04/10/17 20:59 03/11/17 20:16 3.125 MG Physical Exam Date Time Temp Pulse Resp B/P (MAP) Pulse Ox O2 Delivery O2 Flow Rate FiO2 03/12/17 08:05 37.0 86 18 132/68 (89) 99 03/12/17 04:06 36.5 80 16 112/70 (84) 94 Nasal Cannula 2.0 03/12/17 04:00 Nasal Cannula 2.0 03/12/17 00:00 Nasal Cannula 2.0 03/11/17 23:51 36.8 82 17 125/75 (92) 93 Nasal Cannula 2.0 03/11/17 20:13 36.6 86 18 145/73 (97) 95 Nasal Cannula 2.0 03/11/17 20:09 86 145/73 (97) 03/11/17 20:00 Room Air 03/11/17 17:17 77 03/11/17 16:00 Nasal Cannula 2.0 Humidified Oxygen 03/11/17 15:29 36.3 70 18 125/66 (85) 99 Nasal Cannula 2.0 03/11/17 12:17 36.5 91 16 98/60 (73) 98 03/11/17 12:00 Nasal Cannula 2.0 Humidified Oxygen Laboratory Results Last 24 Hours Test 03/11/17 11:51 03/11/17 13:14 03/12/17 06:16 Bedside Glucose 86 mg/dl Activated Partial Thromboplast Time 49.5 SECONDS 43.7 SECONDS Partial Thromboplastin Ratio 1.9 1.7 White Blood Count 5.79 K/uL Red Blood Count 3.92 M/uL Hemoglobin 12.1 g/dL Hematocrit 35.3 % Mean Corpuscular Volume 90.1 fL Mean Corpuscular Hemoglobin 30.9 pg Mean Corpuscular Hemoglobin Concent 34.3 g/dl RDW Standard Deviation 45.1 fL RDW Coefficient of Variation 13.6 % Platelet Count 132 K/uL Mean Platelet Volume 10.2 fL Prothrombin Time 11.4 SECONDS Prothromb Time International Ratio 1.1
[2017-03-12] MEDS: TAMSULOSIN HCL 0.4 MG CAP PO SCH (09:00)
[2017-03-12] MEDS: NICOTINE 14 MG/24 HR TDSY TD SCH (09:00)
[2017-03-12] MEDS: PANTOprazole SOD 40 MG TAB PO SCH (09:00)
[2017-03-12] MEDS: MULTIVITAMIN TAB PO SCH (09:00)
[2017-03-12] MEDS: THIAMINE HCL 100 MG TAB PO SCH (09:00)
[2017-03-12] MEDS: PAROXETINE 20 MG TAB PO SCH (09:00)
[2017-03-12] MEDS: ASPIRIN 81 MG ECTAB PO SCH (09:00)
[2017-03-12] MEDS: BOOST PLUS VANILLA PO SCH ×4 (09:11→20:53)
[2017-03-12] MEDS ORDERED: HEPARIN IV BOLUS 2,000 UNIT in SYRINGE 0 ML IV ONE (09:15)
[2017-03-12] MEDS: CARVEDILOL 3.125 MG TAB PO SCH ×2 (09:43→20:52)
--- NOTE | 2017-03-12 11:58 | CARDIOLOGY PROGRESS NOTE ---
DATE: 03/12/2017 DATE: 03/12/2017 FOLLOW-UP VISIT SUBJECTIVE: The patient is an 86-year-old male with severe tobacco associated COPD, atrial fibrillation with RVR, ischemic heart disease with prior coronary stents and a history of prostate cancer which is now metastatic to bone. He has no new cardiac complaints today. He is sitting in a chair comfortably. OBJECTIVE: GENERAL: He is alert and oriented. VITAL SIGNS: Blood pressure 130/70, pulse is irregular at 86 beats per minute. He is afebrile. HEAD, EYES, EARS, NOSE, AND THROAT: He is normocephalic. Pupils are equal and reactive to light. His membranes are moist. NECK: The neck veins are flat. Carotids have good upstrokes bilaterally without bruits. Thyroid is nonpalpable. RESPIRATORY: Breath sounds equal bilaterally and clear to auscultation. CARDIOVASCULAR: Heart has a irregular rhythm. Normal S1, S2, no S3, S4. No cardiac rubs or murmurs. GASTROINTESTINAL: Abdomen is soft, nontender without organomegaly. EXTREMITIES: Free of edema, digit clubbing, or cyanosis. NEUROLOGIC: Grossly intact. SKIN: Warm to touch. LYMPH NODES: Negative to palpation. LABORATORY DATA: Hemoglobin is 12.1, potassium is 4.4, creatinine is 0.78. PSA is 3.49. IMPRESSION: 1. Atrial fibrillation which is chronic. 2. Tobacco associated chronic obstructive pulmonary disease. 3. Ischemic heart disease with previous coronary stents. 4. Metastatic prostate cancer to bone. RECOMMENDATIONS: Oncology's note is appreciated. Yesterday the patient had a 3 second pause on the monitor while he was sleeping early in the morning. His carvedilol dosage has been decreased and he has had no additional slowing. He has no cardiac complaints today. I would continue his current medical management.
[2017-03-12] MEDS: DIGOXIN 0.125 MG TAB PO SCH (15:50)
[2017-03-12] MEDS: WARFARIN SOD 2.5 MG TAB PO SCH (15:51)
[2017-03-12 16:50] LABS: PARTIAL THROMBOPLASTIN RATIO 1.9
--- NOTE | 2017-03-12 18:31 | Progress Note ---
Medicine Progress Note Date & Time of Visit: Mar 12, 2017 at 11:05. Subjective Pt was seen and examined Lying in bed with no distress with daughter at bedside Pt said that he feels a little tired today because he did not sleep well last night due to too much in/out in his room Denies any chest pain, palpitation, dizziness and SOB Objective Last 8 Hrs Date Time Temp Pulse Resp B/P (MAP) Pulse Ox O2 Delivery O2 Flow Rate FiO2 03/12/17 16:06 37.5 103 22 165/78 (107) 92 Nasal Cannula 2.0 03/12/17 16:00 Nasal Cannula 2.0 Humidified Oxygen 03/12/17 15:50 88 03/12/17 12:00 Nasal Cannula 2.0 Humidified Oxygen 03/12/17 11:58 36.9 74 16 128/66 (86) 97 Physical Exam: General- No acute distress Head- atraumatic Eyes- PERRL, EOMI ENT- oropharynx clear Neck- supple, no JVD Lungs- mild wheezing Heart- Irregular rhythm Abdomen- normal bowel sounds, soft Extremities- no calf tenderness Neuro- alert, oriented, PERRL, EOMI; no facial palsy Skin- warm & dry Laboratory Results: Last 24 Hours Test 03/12/17 06:16 03/12/17 16:18 White Blood Count 5.79 K/uL Red Blood Count 3.92 M/uL Hemoglobin 12.1 g/dL Hematocrit 35.3 % Mean Corpuscular Volume 90.1 fL Mean Corpuscular Hemoglobin 30.9 pg Mean Corpuscular Hemoglobin Concent 34.3 g/dl RDW Standard Deviation 45.1 fL RDW Coefficient of Variation 13.6 % Platelet Count 132 K/uL Mean Platelet Volume 10.2 fL Prothrombin Time 11.4 SECONDS Prothromb Time International Ratio 1.1 Activated Partial Thromboplast Time 43.7 SECONDS 49.6 SECONDS Partial Thromboplastin Ratio 1.7 1.9 Date/Time Source Procedure Growth Status 03/12/17 15:55 Stool C.difficile Toxin B Gene (PCR) Pending Received Assessment & Plan Atrial fibrillation. Rate was uncontrolled on admission Continue digoxin Rate has been controlled on digoxin and coreg On IV heparin drip Has not been follow with his cardiology in the past few years Was on anticoagulant in the past, but was discontinued Daughter not too sure why, but think possible due to fall Not a good candidate for anticoagulant due to fall Fell few weeks ago and few months ago he had a bad fall and his gait unsteady Cardiology consulted Case discussed with cardiology recommended to continue IV heparin for now 03/12 Continue heparin IV Carvedilol decreased to 3.125 mg Continue digoxin Continue Coumadin 2.5 mg today Check INR in am Cardiology on board continue tele monitor OK by cardiology to discharge on low dose Coumadin Recent Echo showed * The left ventricle is normal in size. * Ejection Fraction = 55-60%. * The left ventricular wall motion is normal. * The right ventricular systolic function is normal. * The left atrium is borderline dilated. * Right atrial size is normal. * Mild valvular aortic stenosis. * Mild aortic regurgitation. Hypertension On Coreg Continue monitor BP Coronary artery disease status post stenting. Denies any chest pain Troponin negative EKG showed Afib Tobacco abuse Counseling on smoking cessation On nicotine patch, but pt has been refused it . Prostate cancer status post radiation As per daughter pt was treated Denies any hematuria Denies any bone pain CT showed Multiple sclerotic lesions seen within the thoracic spine and right seventh rib. This is consistent with osteoblastic metastatic disease. CT result discussed with family Case discussed with Oncology Dr. Rodriguez, recommended to get CT abd/pelvis and full body bone scan If something showed in the bone scan or CT scan abd/pelvis, might need additional work up such as biopsy 03/12 Bone scan done on 03/11 showed diffuse bony metastatic disease primarily involving the thoracic spine and ribs. Result discussed with daughter today Hem/Oncology on board Case discussed with Oncologist Dr. Zaman Pt does not require any treatment for prostate cancer while in the hospital as per Oncology Oncology will consider for hormonal treatment (with Lupron) as an outpatient. Daughter prefers to follow with [facility] oncology instead to go back to the oncology in [place] Will schedule follow up appointment with oncology before discharging Ambulatory dysfunction Fall precaution PT/OT PT recommended inpatient skills rehab Depression No suicidal ideation On Paxil Stable Malnutrition BMI 15 Increase Protein Intake Continue Boost Chronic anemia Hbg stable DVT px on heparin drip Code status Full code Disposition Will discharge tomorrow for inpatient rehab Follow up with oncology as an outpatient. Consultants: Cardiology Current Inpatient Medications: Current Inpatient Medications Medications (Trade) Dose Ordered Sig/[place]dalena Route Start Time Stop Time Status Last Admin Dose Admin Acetaminophen (Tylenol Tab) 650 mg Q4H PRN PO 03/09/17 05:30 04/08/17 05:29 Ondansetron HCl (Zofran Inj) 4 mg Q6H PRN IV 03/09/17 05:30 04/08/17 05:29 Nitroglycerin (Nitrostat Tab) 0.4 mg UD PRN SL 03/09/17 05:30 04/08/17 05:29 Aspirin (Ecotrin Tab) 81 mg DAILY PO 03/09/17 09:00 04/08/17 08:59 03/12/17 09:00 81 MG Folic Acid (Folvite Tab) 1 mg DAILY PO 03/09/17 09:00 04/08/17 08:59 03/12/17 09:00 1 MG Levothyroxine Sodium (Synthroid Tab) 75 mcg DAILYBB PO 03/09/17 09:00 04/08/17 08:59 03/12/17 05:52 75 MCG Paroxetine HCl (pAXil TAB) 20 mg DAILY PO 03/09/17 09:00 04/08/17 08:59 03/12/17 09:00 20 MG Tamsulosin HCl (Flomax Cap) 0.4 mg DAILY PO 03/09/17 09:00 04/08/17 08:59 03/12/17 09:00 0.4 MG Thiamine HCl (Vitamin B-1 Tab) 100 mg DAILY PO 03/09/17 09:00 04/08/17 08:59 03/12/17 09:00 100 MG Trazodone HCl (Desyrel Tab) 25 mg HS PO 03/09/17 21:00 04/08/17 20:59 03/11/17 20:15 25 MG Pantoprazole Sodium (Protonix Tab) 40 mg DAILY PO 03/09/17 09:00 04/08/17 08:59 03/12/17 09:00 40 MG Multivitamins (Multivitamin Tab) 1 tab QAM PO 03/09/17 09:00 04/08/17 08:59 03/12/17 09:00 1 TAB Acetaminophen (Tylenol Tab) 650 mg Q4H PRN PO 03/09/17 07:45 04/08/17 07:44 Oxycodone/ Acetaminophen (Percocet 5-325mg Tab) 1 tab Q6H PRN PO 03/09/17 07:45 03/23/17 07:44 Prochlorperazine Edisylate 5 mg/ Syringe 5 ml @ 5 mls/min Q6H PRN IV 03/09/17 07:45 04/08/17 07:44 Lorazepam (Ativan Inj) 0.25 mg Q4H PRN IV 03/09/17 07:45 04/08/17 07:44 Ipratropium [place] (Atrovent 0.02% 0.5MG/2.5ML Neb) 0.5 mg Q4H PRN INH 03/09/17 08:00 04/08/17 07:59 03/10/17 16:24 0.5 MG Levalbuterol (Xopenex 1.25MG/ 0.5ML Neb) 1.25 mg Q4H PRN INH 03/09/17 08:00 04/08/17 07:59 03/10/17 16:24 1.25 MG Nicotine (Nicoderm Cq 14MG Patch) 1 patch QAM TD 03/09/17 09:00 04/08/17 08:59 Miscellaneous (Remove Nicoderm Patch) 1 ea HS N/A 03/09/17 21:00 04/08/17 20:59 03/10/17 20:56 1 EA Ioversol (Optiray 320) 100 ml UD PRN IV 03/09/17 08:15 03/13/17 08:14 Digoxin (Lanoxin Tab) 0.125 mg DAILY@1600 PO 03/09/17 16:00 04/08/17 15:59 03/12/17 15:50 0.125 MG Heparin Sodium/ Dextrose 500 ml @ 13 mls/hr Q24H PRN IV 03/09/17 10:00 04/08/17 09:59 03/12/17 09:46 13 MLS/HR Enteral Nutritional Formula (Boost Plus Vanilla) 1 can BID PO 03/09/17 21:00 04/08/17 20:59 03/12/17 09:11 1 CAN Ioversol (Optiray 320) 100 ml UD PRN IV 03/10/17 13:45 03/14/17 13:44 Guaifenesin (Robitussin Sugar Free Syrup) 200 mg Q8 PRN PO 03/10/17 18:15 04/09/17 18:14 Warfarin Sodium (Coumadin Tab) 2.5 mg DAILY@16 PO 03/12/17 16:00 04/11/17 15:59 03/12/17 15:51 2.5 MG Carvedilol (Coreg Tab) 3.125 mg BID PO 03/11/17 21:00 04/10/17 20:59 03/12/17 09:43 3.125 MG
[2017-03-12] MEDS: IPRATROPIUM BROMIDE NEB SOLN 0.02% 2.5 ML VIAL INH SCH (19:44)
[2017-03-12] MEDS: LEVALBUTEROL 0.63MG/3 ML NEB INH SCH (19:44)
[2017-03-12] MEDS: TRAZODONE HCL 50 MG TAB PO SCH (20:53)
[2017-03-12] MEDS ORDERED: LEVALBUTEROL/IPRATROPIUM NEB INH SCH (21:00)
[2017-03-13] VITALS (11 sets, daily range): BP systolic 94–173; BP diastolic 55–103; PULSE 62–146; TEMP 36.3–37.5; O2SAT 82–100
[2017-03-13] MEDS: LEVALBUTEROL 0.63MG/3 ML NEB INH SCH ×4 (02:36→19:30)
[2017-03-13] MEDS: IPRATROPIUM BROMIDE NEB SOLN 0.02% 2.5 ML VIAL INH SCH ×4 (02:36→19:30)
[2017-03-13] MEDS: LEVOTHYROXINE 75 MCG TAB PO SCH (06:27)
[2017-03-13 06:58] LABS: INR 1.1 (0.9-1.1); PARTIAL THROMBOPLASTIN RATIO 1.8; PROTHROMBIN TIME (PATIENT) 11.8 SECONDS (9.0-12.0)
[2017-03-13] MEDS ORDERED: HEPARIN IV BOLUS 2,000 UNIT in SYRINGE 0 ML IV ONE ×2 (07:30→16:00)
[2017-03-13] MEDS: ASPIRIN 81 MG ECTAB PO SCH (08:19)
[2017-03-13] MEDS: PANTOprazole SOD 40 MG TAB PO SCH (08:19)
[2017-03-13] MEDS: PAROXETINE 20 MG TAB PO SCH (08:20)
[2017-03-13] MEDS: NICOTINE 14 MG/24 HR TDSY TD SCH (08:20)
[2017-03-13] MEDS: MULTIVITAMIN TAB PO SCH (08:20)
[2017-03-13] MEDS: THIAMINE HCL 100 MG TAB PO SCH (08:20)
[2017-03-13] MEDS: CARVEDILOL 3.125 MG TAB PO SCH (08:20)
[2017-03-13] MEDS: BOOST PLUS VANILLA PO SCH ×4 (08:25→20:51)
[2017-03-13] MEDS: HEPARIN 25,000 UNIT/500ML D5W 500 ML IV PRN ×2 (08:27→20:54)
[2017-03-13] MEDS: TAMSULOSIN HCL 0.4 MG CAP PO SCH (09:05)
[2017-03-13] MEDS ORDERED: CARVEDILOL 3.125 MG TAB PO ONE (10:00)
[2017-03-13] MEDS: DIGOXIN 0.125 MG TAB PO SCH (13:38)
[2017-03-13 14:50] LABS: PARTIAL THROMBOPLASTIN RATIO 1.8
[2017-03-13] MEDS: WARFARIN SOD 2.5 MG TAB PO SCH (15:49)
--- NOTE | 2017-03-13 19:42 | Progress Note ---
Medicine Progress Note Date & Time of Visit: Mar 13, 2017 at 10:35. Subjective Pt was seen and examined Pt said that he does have some palpitation He said that he is having hard time to breath I talked to her daughter Erika and updated her on pt condition Denies any chest pain, fever and dizziness Objective Last 8 Hrs Date Time Temp Pulse Resp B/P (MAP) Pulse Ox O2 Delivery O2 Flow Rate FiO2 03/13/17 19:32 79 16 95 Nasal Cannula 5.0 03/13/17 16:00 93 Nasal Cannula 4.0 03/13/17 15:15 37.5 104 20 97/57 (70) 94 Room Air 03/13/17 13:38 137 03/13/17 13:20 118 16 92 Nasal Cannula 4.0 03/13/17 13:06 146 28 173/103 (126) 82 Nasal Cannula 2.0 Humidified Oxygen 03/13/17 12:00 Nasal Cannula 2.0 Humidified Oxygen Physical Exam: General- No acute distress Head- atraumatic Eyes- PERRL, EOMI ENT- oropharynx clear Neck- supple, no JVD Lungs- mild wheezing Heart- Irregular rhythm Abdomen- normal bowel sounds, soft Extremities- no calf tenderness Neuro- alert, oriented, PERRL, EOMI; no facial palsy Skin- warm & dry Laboratory Results: Last 24 Hours Test 03/13/17 05:45 03/13/17 14:25 Prothrombin Time 11.8 SECONDS Prothromb Time International Ratio 1.1 Activated Partial Thromboplast Time 45.7 SECONDS 46.7 SECONDS Partial Thromboplastin Ratio 1.8 1.8 Assessment & Plan Atrial fibrillation. Rate was uncontrolled on admission Continue digoxin Rate has been controlled on digoxin and coreg On IV heparin drip Has not been follow with his cardiology in the past few years Was on anticoagulant in the past, but was discontinued Daughter not too sure why, but think possible due to fall Not a good candidate for anticoagulant due to fall Fell few weeks ago and few months ago he had a bad fall and his gait unsteady Cardiology consulted Case discussed with cardiology recommended to continue IV heparin for now 03/13 Rate uncontrolled Continue heparin IV Carvedilol increased back to 6.25 Continue digoxin Continue Coumadin 2.5 mg today Check INR in am Cardiology on board continue tele monitor OK by cardiology to discharge on low dose Coumadin once stable Recent Echo showed * The left ventricle is normal in size. * Ejection Fraction = 55-60%. * The left ventricular wall motion is normal. * The right ventricular systolic function is normal. * The left atrium is borderline dilated. * Right atrial size is normal. * Mild valvular aortic stenosis. * Mild aortic regurgitation. Hypertension BP elevated Coreg increased back to his home dose Continue monitor BP Coronary artery disease status post stenting. Denies any chest pain Troponin negative EKG showed Afib Tobacco abuse Counseling on smoking cessation On nicotine patch, but pt has been refused it . Prostate cancer status post radiation As per daughter pt was treated Denies any hematuria Denies any bone pain CT showed Multiple sclerotic lesions seen within the thoracic spine and right seventh rib. This is consistent with osteoblastic metastatic disease. CT result discussed with family Case discussed with Oncology Dr. Rodriguez, recommended to get CT abd/pelvis and full body bone scan If something showed in the bone scan or CT scan abd/pelvis, might need additional work up such as biopsy 03/13 Bone scan done on 03/11 showed diffuse bony metastatic disease primarily involving the thoracic spine and ribs. Result discussed with daughter today Hem/Oncology on board Case discussed with Oncologist Dr. Zaman Pt does not require any treatment for prostate cancer while in the hospital as per Oncology Oncology will consider for hormonal treatment (with Lupron) as an outpatient. Daughter prefers to follow with [facility] oncology instead to go back to the oncology in [place] Schedule follow up appointment with oncology Dr. Augie Zaman Ambulatory dysfunction Fall precaution PT/OT PT recommended inpatient skills rehab Depression No suicidal ideation On Paxil Stable Malnutrition BMI 15 Increase Protein Intake Continue Boost Chronic anemia Hbg stable DVT px on heparin drip Code status Full code Disposition Hold discharge today Will discharge tomorrow for inpatient rehab Follow up with oncology as an outpatient. Consultants: Cardiology Current Inpatient Medications: Current Inpatient Medications Medications (Trade) Dose Ordered Sig/Magdalena Route Start Time Stop Time Status Last Admin Dose Admin Ondansetron HCl (Zofran Inj) 4 mg Q6H PRN IV 03/09/17 05:30 04/08/17 05:29 03/13/17 13:03 4 MG Nitroglycerin (Nitrostat Tab) 0.4 mg UD PRN SL 03/09/17 05:30 04/08/17 05:29 Aspirin (Ecotrin Tab) 81 mg DAILY PO 03/09/17 09:00 04/08/17 08:59 03/13/17 08:19 81 MG Folic Acid (Folvite Tab) 1 mg DAILY PO 03/09/17 09:00 04/08/17 08:59 03/13/17 08:20 1 MG Levothyroxine Sodium (Synthroid Tab) 75 mcg DAILYBB PO 03/09/17 09:00 04/08/17 08:59 03/13/17 06:27 75 MCG Paroxetine HCl (pAXil TAB) 20 mg DAILY PO 03/09/17 09:00 04/08/17 08:59 03/13/17 08:20 20 MG Tamsulosin HCl (Flomax Cap) 0.4 mg DAILY PO 03/09/17 09:00 04/08/17 08:59 03/13/17 09:05 0.4 MG Thiamine HCl (Vitamin B-1 Tab) 100 mg DAILY PO 03/09/17 09:00 04/08/17 08:59 03/13/17 08:20 100 MG Trazodone HCl (Desyrel Tab) 25 mg HS PO 03/09/17 21:00 04/08/17 20:59 03/12/17 20:53 25 MG Pantoprazole Sodium (Protonix Tab) 40 mg DAILY PO 03/09/17 09:00 04/08/17 08:59 03/13/17 08:19 40 MG Multivitamins (Multivitamin Tab) 1 tab QAM PO 03/09/17 09:00 04/08/17 08:59 03/13/17 08:20 1 TAB Acetaminophen (Tylenol Tab) 650 mg Q4H PRN PO 03/09/17 07:45 04/08/17 07:44 03/13/17 13:04 650 MG Oxycodone/ Acetaminophen (Percocet 5-325mg Tab) 1 tab Q6H PRN PO 03/09/17 07:45 03/23/17 07:44 Prochlorperazine Edisylate 5 mg/ Syringe 5 ml @ 5 mls/min Q6H PRN IV 03/09/17 07:45 04/08/17 07:44 Lorazepam (Ativan Inj) 0.25 mg Q4H PRN IV 03/09/17 07:45 04/08/17 07:44 Ipratropium [place] (Atrovent 0.02% 0.5MG/2.5ML Neb) 0.5 mg Q4H PRN INH 03/09/17 08:00 04/08/17 07:59 03/10/17 16:24 0.5 MG Levalbuterol (Xopenex 1.25MG/ 0.5ML Neb) 1.25 mg Q4H PRN INH 03/09/17 08:00 04/08/17 07:59 03/10/17 16:24 1.25 MG Nicotine (Nicoderm Cq 14MG Patch) 1 patch QAM TD 03/09/17 09:00 04/08/17 08:59 Miscellaneous (Remove Nicoderm Patch) 1 ea HS N/A 03/09/17 21:00 04/08/17 20:59 03/12/17 20:52 1 EA Digoxin (Lanoxin Tab) 0.125 mg DAILY@1600 PO 03/09/17 16:00 04/08/17 15:59 03/13/17 13:38 0.125 MG Heparin Sodium/ Dextrose 500 ml @ 15 mls/hr Q24H PRN IV 03/09/17 10:00 04/08/17 09:59 03/13/17 08:27 14 MLS/HR Enteral Nutritional Formula (Boost Plus Vanilla) 1 can BID PO 03/09/17 21:00 04/08/17 20:59 03/13/17 08:25 1 CAN Ioversol (Optiray 320) 100 ml UD PRN IV 03/10/17 13:45 03/14/17 13:44 Guaifenesin (Robitussin Sugar Free Syrup) 200 mg Q8 PRN PO 03/10/17 18:15 04/09/17 18:14 Warfarin Sodium (Coumadin Tab) 2.5 mg DAILY@16 PO 03/12/17 16:00 04/11/17 15:59 03/13/17 15:49 2.5 MG Ipratropium [place] (Atrovent 0.02% 0.5MG/2.5ML Neb) 0.5 mg Q6R INH 03/12/17 21:00 04/11/17 20:59 03/13/17 19:30 0.5 MG Levalbuterol (Xopenex 0.63 Mg/ 3 Ml Neb) 0.63 mg Q6R INH 03/12/17 21:00 04/11/17 20:59 03/13/17 19:30 0.63 MG Carvedilol (Coreg Tab) 6.25 mg BID PO 03/13/17 21:00 04/12/17 20:59
[2017-03-13] MEDS: TRAZODONE HCL 50 MG TAB PO SCH (20:51)
[2017-03-13] MEDS: CARVEDILOL 6.25 MG TAB PO SCH (20:52)
[2017-03-13 22:59] LABS: PARTIAL THROMBOPLASTIN RATIO 2.7
[2017-03-14] VITALS (10 sets, daily range): BP systolic 90–134; BP diastolic 54–71; PULSE 61–88; TEMP 36.3–36.7; O2SAT 90–98
[2017-03-14] MEDS: IPRATROPIUM BROMIDE NEB SOLN 0.02% 2.5 ML VIAL INH SCH ×3 (01:50→14:11)
[2017-03-14] MEDS: LEVALBUTEROL 0.63MG/3 ML NEB INH SCH ×3 (01:50→14:11)
[2017-03-14 05:56] LABS: INR 1.3 (0.9-1.1); PROTHROMBIN TIME (PATIENT) 14.5 SECONDS (9.0-12.0)
[2017-03-14] MEDS: LEVOTHYROXINE 75 MCG TAB PO SCH (06:51)
[2017-03-14 07:50] LABS: PARTIAL THROMBOPLASTIN RATIO 1.8
[2017-03-14] MEDS: TAMSULOSIN HCL 0.4 MG CAP PO SCH (08:59)
[2017-03-14] MEDS: PANTOprazole SOD 40 MG TAB PO SCH (08:59)
[2017-03-14] MEDS: BOOST PLUS VANILLA PO SCH ×4 (08:59→20:56)
[2017-03-14] MEDS: THIAMINE HCL 100 MG TAB PO SCH (08:59)
[2017-03-14] MEDS: MULTIVITAMIN TAB PO SCH (08:59)
[2017-03-14] MEDS: PAROXETINE 20 MG TAB PO SCH (09:00)
[2017-03-14] MEDS: ASPIRIN 81 MG ECTAB PO SCH (09:00)
[2017-03-14] MEDS: CARVEDILOL 6.25 MG TAB PO SCH ×2 (09:00→20:56)
[2017-03-14] MEDS: NICOTINE 14 MG/24 HR TDSY TD SCH (09:00)
--- NOTE | 2017-03-14 12:42 | Cardiology Follow-Up ---
Subjective Subjective Date of Service: Mar 14, 2017. Pt evaluation today including: conversation w/ patient, physical exam, chart review, lab review, review of studies, review of inpatient medication list Additional Details: Pt seen and examined, lethargic but states that he's feeling ok. Some shortness of breath but denies cp, palpitations, lightheadedness or dizziness. Tele reviewed: atrial fibrillation with controlled rates. Problem List Medical Problems: (1) CAD (coronary artery disease) Status: Chronic (2) CHF (congestive heart failure) Status: Chronic (3) HTN (hypertension) Status: Chronic Review of Systems Respiratory: + cough, + shortness of breath, + dyspnea on exertion, No sputum, No hemoptysis Cardiac: No chest pain, No orthopnea, No PND, No edema, No palpitations Objective Vital Signs Last Vital Signs Documentation Date Time Temp Pulse Resp B/P (MAP) Pulse Ox O2 Delivery O2 Flow Rate FiO2 03/14/17 11:04 36.6 74 18 92/60 (71) 90 Nasal Cannula 5.0 Physical Exam: General Appearance: WD/WN, no apparent distress, + cachetic Eyes: bilateral eyes normal inspection, bilateral eyes PERRL, bilateral eyes EOMI ENT: normal ENT inspection, hearing grossly normal, pharynx normal Neck: supple, no adenopathy, thyroid normal, no JVD, no carotid bruits, trachea midline Respiratory/Chest: chest non-tender, no respiratory distress, no accessory muscle use, + decreased breath sounds Cardiovascular: no edema, + irregularly irregular Abdomen: normal bowel sounds, non tender, soft, no organomegaly Extremities: normal inspection, no pedal edema, no calf tenderness 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 atrial fibrillation rates now improved with uptitration of coreg no further pauses would continue current dose ok to d/c from cardiac standpoint.
[2017-03-14] MEDS: DIGOXIN 0.125 MG TAB PO SCH (16:17)
[2017-03-14] MEDS: WARFARIN SOD 2.5 MG TAB PO SCH (16:17)
--- NOTE | 2017-03-14 18:28 | Progress Note ---
Medicine Progress Note Date & Time of Visit: Mar 14, 2017 at 11:23. Subjective Pt was seen and examined Lying in bed with no distress Breathing improved today Denies any palpitation, dizziness Objective Last 8 Hrs Date Time Temp Pulse Resp B/P (MAP) Pulse Ox O2 Delivery O2 Flow Rate FiO2 03/14/17 16:17 81 03/14/17 16:00 Nasal Cannula 4.0 Humidified Oxygen 03/14/17 15:51 36.4 76 18 134/71 (92) 95 Nasal Cannula 5.0 03/14/17 14:12 88 18 92 Nasal Cannula 5.0 03/14/17 12:00 Nasal Cannula 4.0 Humidified Oxygen 03/14/17 11:04 36.6 74 18 92/60 (71) 90 Nasal Cannula 5.0 Physical Exam: General- No acute distress Head- atraumatic Eyes- PERRL, EOMI ENT- oropharynx clear Neck- supple, no JVD Lungs- mild wheezing Heart- Irregular rhythm Abdomen- normal bowel sounds, soft Extremities- no calf tenderness Neuro- alert, oriented, PERRL, EOMI; no facial palsy Skin- warm & dry Laboratory Results: Last 24 Hours Test 03/13/17 22:26 03/14/17 05:30 Activated Partial Thromboplast Time 71.4 SECONDS 47.4 SECONDS Partial Thromboplastin Ratio 2.7 1.8 Prothrombin Time 14.5 SECONDS Prothromb Time International Ratio 1.3 Assessment & Plan Atrial fibrillation. Rate was uncontrolled on admission Continue digoxin Rate has been controlled on digoxin and coreg On IV heparin drip Has not been follow with his cardiology in the past few years Was on anticoagulant in the past, but was discontinued Daughter not too sure why, but think possible due to fall Not a good candidate for anticoagulant due to fall Fell few weeks ago and few months ago he had a bad fall and his gait unsteady Cardiology consulted Case discussed with cardiology recommended to continue IV heparin for now 03/14 Rate control Continue heparin IV Continue Carvedilol 6.25mg Continue digoxin Continue Coumadin 2.5 mg today INR 1.3 today Cardiology on board continue tele monitor OK by cardiology to discharge on low dose Coumadin once stable Recent Echo showed * The left ventricle is normal in size. * Ejection Fraction = 55-60%. * The left ventricular wall motion is normal. * The right ventricular systolic function is normal. * The left atrium is borderline dilated. * Right atrial size is normal. * Mild valvular aortic stenosis. * Mild aortic regurgitation. Hypertension BP control Continue coreg 6.25 mg daily Continue monitor BP Coronary artery disease status post stenting. Denies any chest pain Troponin negative EKG showed Afib Tobacco abuse Counseling on smoking cessation On nicotine patch, but pt has been refused it . Prostate cancer status post radiation As per daughter pt was treated Denies any hematuria Denies any bone pain CT showed Multiple sclerotic lesions seen within the thoracic spine and right seventh rib. This is consistent with osteoblastic metastatic disease. CT result discussed with family Case discussed with Oncology Dr. Rodriguez, recommended to get CT abd/pelvis and full body bone scan If something showed in the bone scan or CT scan abd/pelvis, might need additional work up such as biopsy 03/14 Bone scan done on 03/11 showed diffuse bony metastatic disease primarily involving the thoracic spine and ribs. Result discussed with daughter today Hem/Oncology on board Case discussed with Oncologist Dr. Zaman Pt does not require any treatment for prostate cancer while in the hospital as per Oncology Oncology will consider for hormonal treatment (with Lupron) as an outpatient. Daughter prefers to follow with [facility] oncology instead to go back to the oncology in [place] Schedule follow up appointment with oncology Dr. Augie Zaman Ambulatory dysfunction Fall precaution PT/OT PT recommended inpatient skills rehab Depression No suicidal ideation On Paxil Stable Malnutrition BMI 15 Increase Protein Intake Continue Boost Chronic anemia Hbg stable DVT px on heparin drip Code status Full code Disposition Hold discharge today Will discharge tomorrow for inpatient rehab ( rn case manager was not able to get transportation for today) Follow up with oncology as an outpatient. Consultants: Cardiology Current Inpatient Medications: Current Inpatient Medications Medications (Trade) Dose Ordered Sig/[place]dalena Route Start Time Stop Time Status Last Admin Dose Admin Ondansetron HCl (Zofran Inj) 4 mg Q6H PRN IV 03/09/17 05:30 04/08/17 05:29 03/13/17 13:03 4 MG Nitroglycerin (Nitrostat Tab) 0.4 mg UD PRN SL 03/09/17 05:30 04/08/17 05:29 Aspirin (Ecotrin Tab) 81 mg DAILY PO 03/09/17 09:00 04/08/17 08:59 03/14/17 09:00 81 MG Folic Acid (Folvite Tab) 1 mg DAILY PO 03/09/17 09:00 04/08/17 08:59 03/14/17 09:00 1 MG Levothyroxine Sodium (Synthroid Tab) 75 mcg DAILYBB PO 03/09/17 09:00 04/08/17 08:59 03/14/17 06:51 75 MCG Paroxetine HCl (pAXil TAB) 20 mg DAILY PO 03/09/17 09:00 04/08/17 08:59 03/14/17 09:00 20 MG Tamsulosin HCl (Flomax Cap) 0.4 mg DAILY PO 03/09/17 09:00 04/08/17 08:59 03/14/17 08:59 0.4 MG Thiamine HCl (Vitamin B-1 Tab) 100 mg DAILY PO 03/09/17 09:00 04/08/17 08:59 03/14/17 08:59 100 MG Trazodone HCl (Desyrel Tab) 25 mg HS PO 03/09/17 21:00 04/08/17 20:59 03/13/17 20:51 25 MG Pantoprazole Sodium (Protonix Tab) 40 mg DAILY PO 03/09/17 09:00 04/08/17 08:59 03/14/17 08:59 40 MG Multivitamins (Multivitamin Tab) 1 tab QAM PO 03/09/17 09:00 04/08/17 08:59 03/14/17 08:59 1 TAB Acetaminophen (Tylenol Tab) 650 mg Q4H PRN PO 03/09/17 07:45 04/08/17 07:44 03/13/17 13:04 650 MG Oxycodone/ Acetaminophen (Percocet 5-325mg Tab) 1 tab Q6H PRN PO 03/09/17 07:45 03/23/17 07:44 Prochlorperazine Edisylate 5 mg/ Syringe 5 ml @ 5 mls/min Q6H PRN IV 03/09/17 07:45 04/08/17 07:44 Lorazepam (Ativan Inj) 0.25 mg Q4H PRN IV 03/09/17 07:45 04/08/17 07:44 Ipratropium [place] (Atrovent 0.02% 0.5MG/2.5ML Neb) 0.5 mg Q4H PRN INH 03/09/17 08:00 04/08/17 07:59 03/10/17 16:24 0.5 MG Levalbuterol (Xopenex 1.25MG/ 0.5ML Neb) 1.25 mg Q4H PRN INH 03/09/17 08:00 04/08/17 07:59 03/10/17 16:24 1.25 MG Nicotine (Nicoderm Cq 14MG Patch) 1 patch QAM TD 03/09/17 09:00 04/08/17 08:59 Miscellaneous (Remove Nicoderm Patch) 1 ea HS N/A 03/09/17 21:00 04/08/17 20:59 03/13/17 20:51 1 EA Digoxin (Lanoxin Tab) 0.125 mg DAILY@1600 PO 03/09/17 16:00 04/08/17 15:59 03/14/17 16:17 0.125 MG Heparin Sodium/ Dextrose 500 ml @ 14 mls/hr Q24H PRN IV 03/09/17 10:00 04/08/17 09:59 03/13/17 20:54 15 MLS/HR Enteral Nutritional Formula (Boost Plus Vanilla) 1 can BID PO 03/09/17 21:00 04/08/17 20:59 03/14/17 08:59 1 CAN Guaifenesin (Robitussin Sugar Free Syrup) 200 mg Q8 PRN PO 03/10/17 18:15 04/09/17 18:14 Warfarin Sodium (Coumadin Tab) 2.5 mg DAILY@16 PO 03/12/17 16:00 04/11/17 15:59 03/14/17 16:17 2.5 MG Ipratropium [place] (Atrovent 0.02% 0.5MG/2.5ML Neb) 0.5 mg Q6R INH 03/12/17 21:00 04/11/17 20:59 03/14/17 14:11 0.5 MG Levalbuterol (Xopenex 0.63 Mg/ 3 Ml Neb) 0.63 mg Q6R INH 03/12/17 21:00 04/11/17 20:59 03/14/17 14:11 0.63 MG Carvedilol (Coreg Tab) 6.25 mg BID PO 03/13/17 21:00 04/12/17 20:59 03/14/17 09:00 6.25 MG
[2017-03-14] MEDS: TRAZODONE HCL 50 MG TAB PO SCH (20:56)
[2017-03-15] VITALS (7 sets, daily range): BP systolic 116–129; BP diastolic 65–74; PULSE 64–81; TEMP 36.3; O2SAT 92–100
[2017-03-15] MEDS: LEVALBUTEROL 0.63MG/3 ML NEB INH SCH ×3 (01:48→14:12)
[2017-03-15] MEDS: IPRATROPIUM BROMIDE NEB SOLN 0.02% 2.5 ML VIAL INH SCH ×3 (01:48→14:11)
[2017-03-15] MEDS: LEVOTHYROXINE 75 MCG TAB PO SCH (06:03)
[2017-03-15 06:14] LABS: HEMATOCRIT 32.9 % (42-52); MEAN CELL VOLUME 92.9 fL (80-100); MEAN CORPUSCULAR HEMOGLOBIN 30.8 pg (25-34); MEAN CORPUSCULAR HGB CONC 33.1 g/dl (32-36); MEAN PLATELET VOLUME 9.3 fL (7.4-10.4); PLATELET COUNT 229 K/uL (130-400); RED BLOOD COUNT 3.54 M/uL (4.7-6.1); WHITE BLOOD COUNT 7.58 K/uL (4.8-10.8)
[2017-03-15 07:52] LABS: INR 1.2 (0.9-1.1); PARTIAL THROMBOPLASTIN RATIO 1.8; PROTHROMBIN TIME (PATIENT) 13.1 SECONDS (9.0-12.0)
[2017-03-15] MEDS: TAMSULOSIN HCL 0.4 MG CAP PO SCH (08:44)
[2017-03-15] MEDS: ASPIRIN 81 MG ECTAB PO SCH (08:45)
[2017-03-15] MEDS: PAROXETINE 20 MG TAB PO SCH (08:45)
[2017-03-15] MEDS: PANTOprazole SOD 40 MG TAB PO SCH (08:46)
[2017-03-15] MEDS: THIAMINE HCL 100 MG TAB PO SCH (08:46)
[2017-03-15] MEDS: BOOST PLUS VANILLA PO SCH ×2 (08:46)
[2017-03-15] MEDS: MULTIVITAMIN TAB PO SCH (08:46)
[2017-03-15] MEDS: CARVEDILOL 6.25 MG TAB PO SCH (08:46)
[2017-03-15] MEDS: NICOTINE 14 MG/24 HR TDSY TD SCH (08:47)
[2017-03-15] MEDS ORDERED: NURSING VERBAL MED ORDER ONE (09:00)
[2017-03-15] MEDS ORDERED: HEPARIN IV BOLUS 2,000 UNIT in SYRINGE 0 ML IV ONE (09:00)
--- NOTE | 2017-03-15 09:45 | Progress Note ---
Medicine Progress Note Date & Time of Visit: Mar 15, 2017 at 09:29. Subjective Pt was seen an examined and examined Lying in bed with no distress Pt said that he feels much better this morning He said that he feels stronger He denies any chest pain, palpitation, dizziness and SOB Objective Last 8 Hrs Date Time Temp Pulse Resp B/P (MAP) Pulse Ox O2 Delivery O2 Flow Rate FiO2 03/15/17 07:29 36.3 64 18 116/65 (82) 100 Room Air 03/15/17 07:16 65 18 98 Nasal Cannula 4.0 03/15/17 01:50 81 16 92 Nasal Cannula 4.0 Physical Exam: General- No acute distress Head- atraumatic Eyes- PERRL, EOMI ENT- oropharynx clear Neck- supple, no JVD Lungs- coarse breath sound Heart- Irregular rhythm Abdomen- normal bowel sounds, soft Extremities- no calf tenderness Neuro- alert, oriented, PERRL, EOMI; no facial palsy Skin- warm & dry Laboratory Results: Last 24 Hours Test 03/15/17 05:39 White Blood Count 7.58 K/uL Red Blood Count 3.54 M/uL Hemoglobin 10.9 g/dL Hematocrit 32.9 % Mean Corpuscular Volume 92.9 fL Mean Corpuscular Hemoglobin 30.8 pg Mean Corpuscular Hemoglobin Concent 33.1 g/dl RDW Standard Deviation 46.4 fL RDW Coefficient of Variation 13.8 % Platelet Count 229 K/uL Mean Platelet Volume 9.3 fL Prothrombin Time 13.1 SECONDS Prothromb Time International Ratio 1.2 Activated Partial Thromboplast Time 45.6 SECONDS Partial Thromboplastin Ratio 1.8 Assessment & Plan Atrial fibrillation. Rate was uncontrolled on admission Continue digoxin Rate has been controlled on digoxin and coreg On IV heparin drip Has not been follow with his cardiology in the past few years Was on anticoagulant in the past, but was discontinued Daughter not too sure why, but think possible due to fall Not a good candidate for anticoagulant due to fall Fell few weeks ago and few months ago he had a bad fall and his gait unsteady Cardiology consulted Case discussed with cardiology recommended to continue IV heparin for now 03/15 Rate control D/C heparin IV Continue Carvedilol 6.25mg Continue digoxin Continue Coumadin 2.5 mg today INR 1.2 today Continue monitor INR Cardiology on board OK by cardiology to discharge on low dose Coumadin once stable Recent Echo showed * The left ventricle is normal in size. * Ejection Fraction = 55-60%. * The left ventricular wall motion is normal. * The right ventricular systolic function is normal. * The left atrium is borderline dilated. * Right atrial size is normal. * Mild valvular aortic stenosis. * Mild aortic regurgitation. Hypertension BP control Continue coreg 6.25 mg daily Continue monitor BP Coronary artery disease status post stenting. Denies any chest pain Troponin negative EKG showed Afib Tobacco abuse Counseling on smoking cessation On nicotine patch, but pt has been refused it . Prostate cancer status post radiation As per daughter pt was treated Denies any hematuria Denies any bone pain CT showed Multiple sclerotic lesions seen within the thoracic spine and right seventh rib. This is consistent with osteoblastic metastatic disease. CT result discussed with family Case discussed with Oncology Dr. Rodriguez, recommended to get CT abd/pelvis and full body bone scan If something showed in the bone scan or CT scan abd/pelvis, might need additional work up such as biopsy 03/14 Bone scan done on 03/11 showed diffuse bony metastatic disease primarily involving the thoracic spine an ribs. Result discussed with daughter today Hem/Oncology on board Case discussed with Oncologist Dr. Zaman Pt does not require any treatment for prostate cancer while in the hospital as per Oncology Oncology will consider for hormonal treatment (with Lupron) as an outpatient. Daughter prefers to follow with [facility] oncology instead to go back to the oncology [facility] Follow up appointment with oncology Dr. Augie Zaman on 03/25 @ 9:45 AM Ambulatory dysfunction Fall precaution PT/OT PT recommended inpatient skills rehab Will transfer to [facility] for inpatient rehab Cough Afebrile, No leukocytosis coarse breath sound on exam Continue guaifenesin Neb treatment and short course of prednisone Depression No suicidal ideation On Paxil Stable Malnutrition BMI 15 Increase Protein Intake Continue Boost Chronic anemia Hbg stable DVT px on heparin drip Code status Full code Disposition Hold discharge today Discharge for inpatient rehab today with Son Follow up with oncology Dr. Zaman on 03/25 @ 9:45 AM Consultants: Cardiology Oncology Current Inpatient Medications: Current Inpatient Medications Medications (Trade) Dose Ordered Sig/[place] Route Start Time Stop Time Status Last Admin Dose Admin Ondansetron HCl (Zofran Inj) 4 mg Q6H PRN IV 03/09/17 05:30 04/08/17 05:29 03/13/17 13:03 4 MG Nitroglycerin (Nitrostat Tab) 0.4 mg UD PRN SL 03/09/17 05:30 04/08/17 05:29 Aspirin (Ecotrin Tab) 81 mg DAILY PO 03/09/17 09:00 04/08/17 08:59 03/15/17 08:45 81 MG Folic Acid (Folvite Tab) 1 mg DAILY PO 03/09/17 09:00 04/08/17 08:59 03/15/17 08:45 1 MG Levothyroxine Sodium (Synthroid Tab) 75 mcg DAILYBB PO 03/09/17 09:00 04/08/17 08:59 03/15/17 06:03 75 MCG Paroxetine HCl (pAXil TAB) 20 mg DAILY PO 03/09/17 09:00 04/08/17 08:59 03/15/17 08:45 20 MG Tamsulosin HCl (Flomax Cap) 0.4 mg DAILY PO 03/09/17 09:00 04/08/17 08:59 03/15/17 08:44 0.4 MG Thiamine HCl (Vitamin B-1 Tab) 100 mg DAILY PO 03/09/17 09:00 04/08/17 08:59 03/15/17 08:46 100 MG Trazodone HCl (Desyrel Tab) 25 mg HS PO 03/09/17 21:00 04/08/17 20:59 03/14/17 20:56 25 MG Pantoprazole Sodium (Protonix Tab) 40 mg DAILY PO 03/09/17 09:00 04/08/17 08:59 03/15/17 08:46 40 MG Multivitamins (Multivitamin Tab) 1 tab QAM PO 03/09/17 09:00 04/08/17 08:59 03/15/17 08:46 1 TAB Acetaminophen (Tylenol Tab) 650 mg Q4H PRN PO 03/09/17 07:45 04/08/17 07:44 03/13/17 13:04 650 MG Oxycodone/ Acetaminophen (Percocet 5-325mg Tab) 1 tab Q6H PRN PO 03/09/17 07:45 03/23/17 07:44 Prochlorperazine Edisylate 5 mg/ Syringe 5 ml @ 5 mls/min Q6H PRN IV 03/09/17 07:45 04/08/17 07:44 Lorazepam (Ativan Inj) 0.25 mg Q4H PRN IV 03/09/17 07:45 04/08/17 07:44 Ipratropium [place] (Atrovent 0.02% 0.5MG/2.5ML Neb) 0.5 mg Q4H PRN INH 03/09/17 08:00 04/08/17 07:59 03/10/17 16:24 0.5 MG Levalbuterol (Xopenex 1.25MG/ 0.5ML Neb) 1.25 mg Q4H PRN INH 03/09/17 08:00 04/08/17 07:59 03/10/17 16:24 1.25 MG Nicotine (Nicoderm Cq 14MG Patch) 1 patch QAM TD 03/09/17 09:00 04/08/17 08:59 Miscellaneous (Remove Nicoderm Patch) 1 ea HS N/A 03/09/17 21:00 04/08/17 20:59 03/13/17 20:51 1 EA Digoxin (Lanoxin Tab) 0.125 mg DAILY@1600 PO 03/09/17 16:00 04/08/17 15:59 03/14/17 16:17 0.125 MG Heparin Sodium/ Dextrose 500 ml @ 15 mls/hr Q24H PRN IV 03/09/17 10:00 04/08/17 09:59 03/13/17 20:54 15 MLS/HR Enteral Nutritional Formula (Boost Plus Vanilla) 1 can BID PO 03/09/17 21:00 04/08/17 20:59 03/14/17 20:56 1 CAN Guaifenesin (Robitussin Sugar Free Syrup) 200 mg Q8 PRN PO 03/10/17 18:15 04/09/17 18:14 Warfarin Sodium (Coumadin Tab) 2.5 mg DAILY@16 PO 03/12/17 16:00 04/11/17 15:59 03/14/17 16:17 2.5 MG Ipratropium [place] (Atrovent 0.02% 0.5MG/2.5ML Neb) 0.5 mg Q6R INH 03/12/17 21:00 04/11/17 20:59 03/15/17 07:13 0.5 MG Levalbuterol (Xopenex 0.63 Mg/ 3 Ml Neb) 0.63 mg Q6R INH 03/12/17 21:00 04/11/17 20:59 03/15/17 07:13 0.63 MG Carvedilol (Coreg Tab) 6.25 mg BID PO 03/13/17 21:00 04/12/17 20:59 03/15/17 08:46 6.25 MG Miscellaneous Information (Nursing Verbal Med Order) 1 ea ONE ONCE N/A 03/15/17 09:00 03/15/17 09:01 UNV
[2017-03-15] MEDS ORDERED: RBTUDL10 PO (09:49)
[2017-03-15] MEDS ORDERED: Boost Plus Vanilla PO (09:49)
[2017-03-15] MEDS ORDERED: CMD25 PO (09:49)
[2017-03-15] MEDS ORDERED: ACET-1047 PO (09:49)
[2017-03-15] MEDS ORDERED: PRD20 PO (09:49)
--- NOTE | 2017-03-15 09:57 | Discharge Instructions ---
Discharge Instructions Date of Service Mar 15, 2017. Admission Reason for Admission: Atrial Fibrillation With Rvr Discharge Discharge Diagnosis / Problem: Atrial Fibrillation with RVR, Bony metastatic disease, Hx prostate cancer Discharge Goals Goal(s): Decrease discomfort, Improve function, Improve disease control Activity Recommendations Activity Limitations: resume your previous activity (as tolerated) . Instructions / Follow-Up Instructions / Follow-Up Follow up with your primary care provider once discharge from rehab Follow up with your cardiology Follow up with oncology Dr. Zaman on 03/25 @ 9:45 am Address: [address], [place] [address] Continue Physical therapy Fall precaution Monitor INR Medication Instructions: * Warfarin is a medicine prescribed to prevent blood clots * Warfarin will thin your blood and help prevent new clots * Take your medications exactly as directed * Never skip a dose. Never take a double dose. If you miss a dose, take it as soon as you remember * It is important for your doctor to monitor your prothrombin time (PT). This is a lab test * Keep your appointment for lab tests Risk of Adverse Drug Reactions and Interactions: * Warfarin increases your risk of bleeding * The food you eat and other medications you take can affect how Warfarin works in your body * Ask your doctor about daily aspirin therapy * It is very important to talk with your doctor about all of the other medicines , antibiotics, vitamins or herbal products that you are taking * All of your medication must be approved by your doctor, including new medicines, as well as medicines you have taken before you started taking Warfarin * No NSAIDs ( Motrin, Aleve, Ibuprofen, Naproxen) due to increase risk of bleeding Diet: * In order for Warfarin to work properly, it is important to keep your intake of Vitamin K as consistent as possible * You should avoid any sudden change in Vitamin K intake * Report any significant changes in your diet or weight to your doctor Call your Primary Care doctor if you experience any of the following: * Swelling or Pain in your leg * Sudden, continuous pain deep in a muscle * Pain that worsens when you are active or when you stand still for a long time * Chest Pain * Sudden Shortness of Breath * Rapid or pounding heart beat * Fainting * Dizziness * Cough with blood or bloody sputum * Sweating more than normal * Bruises * Heavy or uncontrolled bleeding * Blood in your urine, stool or vomit * Black or tarry stools Follow Up: It is important for you to keep your follow up appointments with your medical provider. Current Hospital Diet Patient's current hospital diet: AHA Diet (Heart Healthy) Discharge Diet Recommended Diet: AHA Diet (Heart Healthy) Pending Studies Studies pending at discharge: no Medical Emergencies . Who to Call and When: Medical Emergencies: If at any time you feel your situation is an emergency, please call 911 immediately. . Non-Emergent Contact Non-Emergency issues call your: Primary Care Provider Call Non-Emergent contact if: you have any medication questions . . "Provider Documentation" section prepared by Elinor Jacob. . VTE Core Measure Inpt VTE Proph given/why not?: Unfractionated heparin SQ, Warfarin (Coumadin), SCD's
[2017-03-15] MEDS ORDERED: XPNINS INH (10:04)
--- NOTE | 2017-03-15 10:16 | Discharge Summary ---
Discharge Summary Date of Service Mar 15, 2017. Discharge Summary Admission Date: Mar 09, 2017 at 05:53 Discharge Date: Mar 15, 2017 Discharge Disposition: Rehab Principal Diagnosis: Atrial Fibrillation with RVR Secondary Diagnoses/Problems: Bony metastatic disease Prostate cancer status post radiation Coronary artery disease status post stenting. Hypertension Tobacco abuse Depression Ambulatory dysfunction Malnutrition Anemia Procedures: BONE SCAN WHOLE BODY HISTORY: Prostate carcinoma Hx prostate ca/ Multiple sclerotic lesions seen on CTA chest RADIOTRACER: 25.8 mCi Tc-99m MDP STUDY/IMAGES: Planar anterior and posterior whole body imaging was performed 3 hours following the intravenous administration of radiotracer. COMPARISON: CTA of the chest dated 03/09/2017 FINDINGS: Intense increase in activity involving the left pedicle of L3. Scattered increase in the level activity of the T11 and T12 levels of the lumbar spine. Intense increase in activity of the T9 level of the thoracic spine. Low-level scattered foci of increased activity involving the ribs bilaterally. Increase in activity of the right costovertebral junction at T3. No abnormal soft tissue activity characteristics. IMPRESSION: Diffuse bony metastatic disease primarily involving the thoracic spine and ribs. The above report was generated using voice recognition software. It may contain grammatical, syntax or spelling errors. Electronically signed by: Les Ram M.D. 03/11/2017 4:46 PM Dictated Date/Time: 03/11/2017 4:41 PM [~ rep ct add3]] VIDEO SWALLOW STUDY CLINICAL HISTORY: Aspiration. COMPARISON STUDY: No priors. Fluoroscopy time: 3.6 minutes. FINDINGS: Fluoroscopic guidance was provided to the Department of Speech Pathology in performing a video swallow study. The patient consumed barium-impregnated cracker with paste, pudding, nectar thick liquid, and thin barium while the swallowing mechanism was observed in real-time. Silent aspiration was seen with thin barium. There was pharyngeal penetration without evidence of aspiration seen on the nectar thick liquid texture. No penetration or aspiration was seen with the pudding or cracker with paste. Mild esophageal dysmotility is observed. IMPRESSION: 1. Silent aspiration was seen with thin barium. 2. No aspiration was seen with the remaining sampled textures. 3. See dedicated Speech Pathology report for detailed findings and recommendations. Dictated: 03/11/2017 2:56 PM Transcribed: 03/11/2017 3:11 PM GRACIE_Manfred Electronically signed by: Casa Sampson M.D. 03/11/2017 3:11 PM Dictated Date/Time: 03/11/2017 2:[address] ABD/PELVIS IV CONTRAST ONLY CLINICAL HISTORY: Prostate carcinoma COMPARISON STUDY: None. TECHNIQUE: Following the IV administration of 94 mL of Optiray-320, CT scan of the abdomen and pelvis was performed from the lung bases to the proximal femurs. Images are reviewed in the axial, sagittal, and coronal planes. IV contrast was administered without complication. A dose lowering technique was utilized adhering to the principles of ALARA. CT DOSE: 369.83 mGy.cm FINDINGS: Lower chest: There are small bilateral pleural effusions. There is pulmonary emphysema. Liver: The contrast-enhanced liver is normal in size, contour, and attenuation. There is no intrahepatic biliary ductal dilatation. The hepatic veins and portal veins are patent. Gallbladder: Cholelithiasis Spleen: There is an 8 mm splenic hypodensity. The spleen is normal in size Pancreas: Unremarkable. Adrenal glands: Unremarkable. Kidneys: No solid renal masses are visualized. Renal calcifications are likely vascular. Bowel: There are no transition zones indicate bowel obstruction. There is colonic diverticulosis. There is no acute peridiverticular inflammatory change. The appendix is surgically absent by history. Peritoneum: There are bilateral inguinal hernias. The left internal hernia contains a small bowel loop. There are no current obstructive changes. Vasculature: The abdominal aorta is normal in course and caliber. Adenopathy: None. Pelvic viscera: Bladder wall thickening. There are bladder diverticula present. The prostate is enlarged measuring 5.2 cm. Skeletal structures: There is scattered sclerotic skeletal lesions, the largest of which involves the anterior superior aspect of the L3 vertebral body. This measures 19 mm. The study is degraded due to motion artifact. IMPRESSION: 1. Technically degraded study secondary to motion artifact 2. No evidence of bowel obstruction. No evidence of free air 3. Colonic diverticulosis. No evidence of acute diverticulitis 4. Bilateral inguinal hernias. The left inguinal hernia contains a small bowel loop. There is no current evidence of obstruction 5. Bladder wall thickening and bladder diverticula. Enlarged prostate 6. Scattered sclerotic skeletal lesions. 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 7. Cholelithiasis 8. Small bilateral pleural effusions Electronically signed by: Lev Rios M.D. 03/10/2017 2:14 PM Dictated Date/Time: 03/10/2017 2:07 PM [~ rep ct add3]] CHEST CTA for PULMONARY ARTERIES CT DOSE: 1308.25 mGy.cm HISTORY: Short of breath. TECHNIQUE: Multiaxial CT images of the chest were performed following the intravenous administration of contrast to evaluate the pulmonary arteries. Maximal intensity projection images were also obtained. A dose lowering technique was utilized adhering to the principles of ALARA. COMPARISON STUDY: Chest 03/09/2017. FINDINGS: Normal caliber thoracic aorta. No evidence for dissection within the ascending aorta or aortic arch. Inadequate contrast opacification within the descending thoracic aorta. Retrograde opacification of the hepatic veins suggesting mild right-sided heart dysfunction. The heart is mildly enlarged. Trace bilateral pleural effusions. No pericardial effusion. The visualized spleen is unremarkable. Thickening of the adrenal glands is likely age-related. No significant mediastinal or hilar lymphadenopathy. Diffuse sclerosis within the T9 vertebral body. A few additional smaller sclerotic lesions seen within the mid to lower thoracic spine and at L1. There is also a sclerotic focus within the right seventh rib. 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 No pneumothorax. The lungs are hyperexpanded with moderate emphysema. Biapical partially calcified densities favor scarring. [Linear densities favor subsegmental atelectasis. Otherwise, no focal lung consolidations to suggest pneumonia. Near complete opacification of the bilateral lower lobe segmental and subsegmental bronchi. Bilateral lower lobe subsegmental pulmonary arteries are nondiagnostic due to motion artifact. Otherwise, the remaining pulmonary arteries show no filling defects to suggest pulmonary embolus. IMPRESSION: 1. No evidence for pulmonary embolus. 2. Near complete opacification of the bilateral lower lobe segmental and subsegmental bronchi with secretions. 3. Moderate emphysema. 4. Multiple sclerotic lesions seen within the thoracic spine and right seventh rib. 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 5. Trace bilateral pleural effusions. Electronically signed by: Stu San M.D. 03/09/2017 9:26 AM Dictated Date/Time: 03/09/2017 9:[address]AST CT DOSE: HISTORY: Headache. TECHNIQUE: Multiaxial CT images of the head were performed without the use of intravenous contrast. Automated exposure control was utilized for this study. A dose lowering technique was utilized adhering to the principles of ALARA. Comparison: None. Findings: Partial desiccation of the right frontal sinus, ethmoid air cells. Near-complete opacification of the nasal cavity suggesting underlying polyps. Trace fluid levels within the sphenoid sinus and right maxillary sinus. Moderate mucosal thickening within the maxillary sinuses. The mastoid air cells are clear. Motion artifact. The calvarium and skull base are intact. There is no mass, hematoma, midline shift, acute infarct. White matter hypodensity is nonspecific but suggestive of microvascular ischemic change. The ventricles and sulci demonstrate mild age-related involutional changes. Impression: No acute intracranial abnormality. Atrophy and microvascular ischemic changes. Acute on chronic paranasal sinusitis as described above. Electronically signed by: Stu San M.D. 03/09/2017 9:17 AM Dictated Date/Time: 03/09/2017 9:14 AM ECHO Interpretation Summary * Name: LOIDA MOLINA Study Date: 03/09/2017 11:17 AM BP: 139/76 mmHg * Patient Location: [facility]S\\1 HR: 74 * : 1930 (M/d/yyyy) Gender: Male Height: 70 in * Age: 86 yrs Ethnicity: CA Weight: 119 lb * Ordering Physician: Pavan Hernandez * Referring Physician: No Doctor, Assigned * Performed By: Rae Hill RDCS * * Reason For Study: Atrial Fibrillation * BSA: 1.7 m2 * -- Conclusions -- * The left ventricle is normal in size. * Ejection Fraction = 55-60%. * The left ventricular wall motion is normal. * The right ventricular systolic function is normal. * The left atrium is borderline dilated. * Right atrial size is normal. * Mild valvular aortic stenosis. * Mild aortic regurgitation. * There is moderate to severe mitral regurgitation. Procedure Details * A complete two-dimensional transthoracic echocardiogram was performed (2D, M- mode, Doppler and color flow Doppler). Left Ventricle * The left ventricle is normal in size. * There is normal left ventricular wall thickness. * Ejection Fraction = 55-60%. * The left ventricular wall motion is normal. Right Ventricle * The right ventricle is normal size. * The right ventricular systolic function is normal. Atria * The left atrium is borderline dilated. * Right atrial size is normal. * There is no evidence of atrial septal defect, but resolution does not allow assessment for a patent foramen ovale. Mitral Valve * The mitral valve leaflets appear thickened, but open well. * There is moderate to severe mitral regurgitation. Tricuspid Valve * The tricuspid valve is not well visualized, but is grossly normal. * There is trace tricuspid regurgitation. Aortic Valve * Mild valvular aortic stenosis. * Mild aortic regurgitation. Pulmonic Valve * The pulmonic valve is not well visualized. Pericardium/Pleural * There is no pericardial effusion. Consultations: Cardiology Oncology Medication Reconciliation New Medications: Levalbuterol (Levalbuterol HCl) 0.63 Mg/3 Ml Nebu 1 INHA INH Q6 PRN for SOB/Wheezing for 7 Days, BOX Acetaminophen (Mapap) 325 Mg Tab 650 MG PO Q6H PRN for Pain or Fever for 5 Days, #40 TAB Guaifenesin (Guaifenesin) 200 Mg/10 Ml Syrp 200 MG PO Q8 PRN for Cough for 7 Days Prednisone (Prednisone) 20 Mg Tab 20 MG PO DAILY for 4 Days, #4 TAB Warfarin Sod (Coumadin) 2.5 Mg Tab 2.5 MG PO DAILY@16 for 30 Days, TAB [Boost Plus Vanilla] () 1 CAN LIQD 1 CAN PO BID for 30 Days Continued Medications: Aspirin (Aspirin 81) 81 Mg Tab 81 MG PO DAILY Carvedilol (Coreg) 6.25 Mg Tab 6.25 MG PO BID take with food Digoxin (Digoxin) 0.125 Mg Tab 0.125 MG PO DAILY Folic Acid (Folvite) 1 Mg Tab 1 MG PO DAILY, TAB Levothyroxine Sodium (Levothyroxine Sodium) 75 Mcg Tab 75 MCG PO DAILY, 3 Refills [place]-3 Fatty Acids (Fish Oil Concentrate) 1 Cap Cap 1000 MG PO BID Pantoprazole (Protonix) 20 Mg Tab 20 MG PO DAILY, #30 TAB Paroxetine (Paxil) 20 Mg Tab 20 MG PO DAILY, TAB Tamsulosin Hcl (Flomax) 0.4 Mg Cap 0.4 MG PO DAILY, CAP Thiamine Hcl (Vitamin B-1) 100 Mg Tab 100 MG PO BID, TAB Trazodone Hcl (Trazodone) 50 Mg Tab 25 MG PO HS 1/2 tablet dose Discontinued Medications: Meloxicam (Mobic) 15 Mg Tab 15 MG PO DAILY, TAB Admission Information HPI (per Admitting provider): Mr Molina is an 86 yo male with atrial fibrillation,CAD s/p stent placement in [place] 6 years ago, prostate Ca, and COPD who presents via ambulance from [facility]. He apparently had severe diarrhea the last few days as well as a sore throat, and was dehydrated, then noticed his breathing start to be very rapid. He denies any chest pain occurring at that time. He reportedly told [place] [place] he did not take his medications the last 3 days. He presented to [place] and was found to be in a fib with RVR, and was given a dose of digoxin and his heart slowed. He was given 3L of NSS and his HR went from 140 to 120. He reports drinking about 2 beers daily, sometimes more, and so was given a banana bag, thiamine, and folic acid. Imaging showed increased lucency on T9, and there was concern for a spread of his prostate Ca. He also had a BNP of 8600. He was also found to have oral candidiasis. Physical Exam (per Admitting): General Appearance: WD/WN, no apparent distress, + thin Head: normocephalic, atraumatic Eyes: normal inspection, PERRL ENT: hearing grossly normal Neck: supple, no JVD Respiratory/Chest: lungs clear, normal breath sounds, no respiratory distress Cardiovascular: regular rate, rhythm, no murmur, normal peripheral pulses Abdomen/GI: normal bowel sounds, non tender, soft Back: no CVA tenderness, no muscle spasm Extremities/Musculoskelatal: no calf tenderness, no pedal edema Neurologic/Psych: alert, normal mood/affect, oriented x 3 Skin: no rash Hospital Course Atrial fibrillation. Rate was uncontrolled on admission Continue digoxin Rate has been controlled on digoxin and coreg On IV heparin drip Has not been follow with his cardiology in the past few years Was on anticoagulant in the past, but was discontinued Daughter not too sure why, but think possible due to fall Not a good candidate for anticoagulant due to fall Fell few weeks ago and few months ago he had a bad fall and his gait unsteady Cardiology consulted Case discussed with cardiology recommended to continue IV heparin for now 03/15 Rate control D/C heparin IV Continue Carvedilol 6.25mg Continue digoxin Continue Coumadin 2.5 mg today INR 1.2 today Continue monitor INR Cardiology on board OK by cardiology to discharge on low dose Coumadin once stable Recent Echo showed * The left ventricle is normal in size. * Ejection Fraction = 55-60%. * The left ventricular wall motion is normal. * The right ventricular systolic function is normal. * The left atrium is borderline dilated. * Right atrial size is normal. * Mild valvular aortic stenosis. * Mild aortic regurgitation. Hypertension BP control Continue coreg 6.25 mg daily Continue monitor BP Coronary artery disease status post stenting. Denies any chest pain Troponin negative EKG showed Afib Tobacco abuse Counseling on smoking cessation On nicotine patch, but pt has been refused it . Prostate cancer status post radiation As per daughter pt was treated Denies any hematuria Denies any bone pain CT showed Multiple sclerotic lesions seen within the thoracic spine and right seventh rib. This is consistent with osteoblastic metastatic disease. CT result discussed with family Case discussed with Oncology Dr. Rodriguez, recommended to get CT abd/pelvis and full body bone scan If something showed in the bone scan or CT scan abd/pelvis, might need additional work up such as biopsy 03/14 Bone scan done on 03/11 showed diffuse bony metastatic disease primarily involving the thoracic spine an ribs. Result discussed with daughter today Hem/Oncology on board Case discussed with Oncologist Dr. Zaman Pt does not require any treatment for prostate cancer while in the hospital as per Oncology Oncology will consider for hormonal treatment (with Lupron) as an outpatient. Daughter prefers to follow with [facility] oncology instead to go back to the oncology in [place] Follow up appointment with oncology Dr. Augie Zaman on 03/25 @ 9:45 AM Ambulatory dysfunction Fall precaution PT/OT PT recommended inpatient skills rehab Will transfer to [facility] for inpatient rehab Cough Afebrile, No leukocytosis coarse breath sound on exam Continue guaifenesin Neb treatment and short course of prednisone Depression No suicidal ideation On Paxil Stable Malnutrition BMI 15 Increase Protein Intake Continue Boost Chronic anemia Hbg stable DVT px on heparin drip Code status Full code Disposition Hold discharge today Discharge for inpatient rehab today with Son Follow up with oncology Dr. Zaman on 03/25 @ 9:45 AM Total time spent on discharge = 35 minutes This includes examination of the patient, discharge planning, medication reconciliation, and communication with other providers. Discharge Instructions Discharge Instructions Date of Service Mar 15, 2017. Admission Reason for Admission: Atrial Fibrillation With Rvr Discharge Discharge Diagnosis / Problem: Atrial Fibrillation with RVR, Bony metastatic disease, Hx prostate cancer Discharge Goals Goal(s): Decrease discomfort, Improve function, Improve disease control Activity Recommendations Activity Limitations: resume your previous activity (as tolerated) . Instructions / Follow-Up Instructions / Follow-Up Follow up with your primary care provider once discharge from rehab Follow up with your cardiology Follow up with oncology Dr. Zaman on 03/25 @ 9:45 am Address: [address], [place] [address] Continue Physical therapy Fall precaution Monitor INR Medication Instructions: * Warfarin is a medicine prescribed to prevent blood clots * Warfarin will thin your blood and help prevent new clots * Take your medications exactly as directed * Never skip a dose. Never take a double dose. If you miss a dose, take it as soon as you remember * It is important for your doctor to monitor your prothrombin time (PT). This is a lab test * Keep your appointment for lab tests Risk of Adverse Drug Reactions and Interactions: * Warfarin increases your risk of bleeding * The food you eat and other medications you take can affect how Warfarin works in your body * Ask your doctor about daily aspirin therapy * It is very important to talk with your doctor about all of the other medicines , antibiotics, vitamins or herbal products that you are taking * All of your medication must be approved by your doctor, including new medicines, as well as medicines you have taken before you started taking Warfarin * No NSAIDs ( Motrin, Aleve, Ibuprofen, Naproxen) due to increase risk of bleeding Diet: * In order for Warfarin to work properly, it is important to keep your intake of Vitamin K as consistent as possible * You should avoid any sudden change in Vitamin K intake * Report any significant changes in your diet or weight to your doctor Call your Primary Care doctor if you experience any of the following: * Swelling or Pain in your leg * Sudden, continuous pain deep in a muscle * Pain that worsens when you are active or when you stand still for a long time * Chest Pain * Sudden Shortness of Breath * Rapid or pounding heart beat * Fainting * Dizziness * Cough with blood or bloody sputum * Sweating more than normal * Bruises * Heavy or uncontrolled bleeding * Blood in your urine, stool or vomit * Black or tarry stools Follow Up: It is important for you to keep your follow up appointments with your medical provider. Current Hospital Diet Patient's current hospital diet: AHA Diet (Heart Healthy) Discharge Diet Recommended Diet: AHA Diet (Heart Healthy) Pending Studies Studies pending at discharge: no Medical Emergencies . Who to Call and When: Medical Emergencies: If at any time you feel your situation is an emergency, please call 911 immediately. . Non-Emergent Contact Non-Emergency issues call your: Primary Care Provider Call Non-Emergent contact if: you have any medication questions . . "Provider Documentation" section prepared by Elinor Jacob. . VTE Core Measure Inpt VTE Proph given/why not?: Unfractionated heparin SQ, Warfarin (Coumadin), SCD's
[2017-03-15] MEDS: DIGOXIN 0.125 MG TAB PO SCH (15:47)
[2017-03-15] MEDS: WARFARIN SOD 2.5 MG TAB PO SCH (15:47)
--- NOTE | 2017-03-19 08:42 | EDITING REQUIRED CODING QUERY ---
MALNUTRITION To promote full compliance with coding requirements relating to patient care, physician participation is requested in all cases of icd 9 coder uncertainty. Please assist us with the question(s) below: Please place an X within the parenthesis (x). If other, please document: "Malnutrition" is documented in this record. If possible, please check the box that provides a more specific diagnosis: ( ) Mild malnutrition ( ) Moderate malnutrition ( ) Severe malnutrition ( ) Protein malnutrition (kwashiorkor) ( ) Severe protein calorie malnutrition ( ) Protein calorie malnutrition, unspecified ( ) Other (please specify): Was this diagnosis present on admission? Please place an X within the parenthesis (x). ( ) Present on admission ( ) Not present on admission ( ) Unable to be clinically determined Thank you Dahlia Buenrostro
== END 2017-03-15 17:15 | DRG 309 ==
LOC: C.2T 05:53 → ENRESERV 03-14 19:04 → C.MED 03-14 20:01
PROVIDERS: ADMIT Hospitalist; ATTEND Internal Medicine
DX: I48.91 Unspecified atrial fibrillation (principal); E46 Unspecified protein-calorie malnutrition; C79.51 Secondary malignant neoplasm of bone; Z68.1 Body mass index [BMI] 19.9 or less, adult; R64 Cachexia; R19.7 Diarrhea, unspecified; D64.9 Anemia, unspecified; R51 Headache; R26.9 Unspecified abnormalities of gait and mobility; I25.10 Atherosclerotic heart disease of native coronary artery without angina pectoris; J44.9 Chronic obstructive pulmonary disease, unspecified; C61 Malignant neoplasm of prostate; I11.0 Hypertensive heart disease with heart failure; I50.9 Heart failure, unspecified; E03.9 Hypothyroidism, unspecified; F32.9 Major depressive disorder, single episode, unspecified; F10.10 Alcohol abuse, uncomplicated; F17.200 Nicotine dependence, unspecified, uncomplicated; Z79.899 Other long term (current) drug therapy; Z79.82 Long term (current) use of aspirin; Z95.5 Presence of coronary angioplasty implant and graft; Z92.3 Personal history of irradiation; Z91.81 History of falling; Z82.49 Family history of ischemic heart disease and other diseases of the circulatory system